=== PATIENT | male | born 1940 | race Caucasian/White ===

== ENCOUNTER 2019-10-18 07:47 | Observation (INO) ==
[~2019-10-18 07:47] MED LIST: BACITRACIN INJ 50,000 UNIT VIAL ONE; BUPIVACAINE 0.25% 30 ML VIAL ONE; LIDOCAINE HCL 1% 20 ML VIAL ONE
--- OUTSIDE RECORDS SUMMARY | 2019-10-18 07:53 | External Medical Summary | Continuity of Care Document ---
:1940 Author Name eTddy M.DJerome Address Unavailable Unavailable , Care Team Providers Name Role Phone Unavailable Unavailable Unavailable PCP, NO Unavailable Unavailable Problems Hypertension (401.9) (I10) Allergies and Adverse Reactions Intravenous Dye (Allergy) Medications Metoprolol Succinate ER 25 MG Oral Table t Extended Release 24 Hour; TAKE 1 TABLET BY MOUTH DAILY , M.D. Quantity: 90 Refills: 3 CoQ10 100 MG Oral Capsule; TAKE 1 CAPSULE Daily , M.D. Refills: 0 Saw [place] 1000 MG Oral Capsule; TAKE 1 CAPSULE Daily , M. D. Refills: 0 Glucosamine 500 MG TABS; Take 1 tablet daily , M.D. Refills: 0 Vitamin B-12 500 MCG Oral Tablet; TAKE 1 TABLET DAILY. , M.D . Refills: 0 Vitamin D3 25 MCG (1000 UT) Oral Tablet; TAKE 1 TABLET DAILY . , M.D. Refills: 0 Ecotrin Low Strength 81 MG Oral Tablet Delayed Release ; TAKE 1 TABLET DAILY. , M.D. Refills: 0 Fish Oil 1000 MG Oral Capsule; TAKE 1 CAPSULE DAILY. , M.D. Refills: 0 AndroGel 25 MG/2.5GM (1%) Transdermal Gel; APPLY DAILY DI RECTED , M.D. Refills: 0 Omeprazole 20 MG Oral Tablet Delayed Release; 1 capsule carole y , M.D. Quantity: 90 Refills: 3 Lisinopril 5 MG Oral Tablet; TAKE 1 TABLET DAILY. , M.D. Quantity: 90 Refills: 3 Procedures Procedures not documented Immunizations Immunizations not documented Family History Mother Family history of Brain tumor (239.6) (D49.6) Status: Active Family history of Status: Active Father Family history of myocardial infarction (V17.3) (Z82.49) Sta tus: Active Brother Family history of myocardial infarction (V17.3) (Z82.49) Sta tus: Active Plan of Treatment Planned Observations Planned Goals not documented Results No Known Results Results not documented
[2019-10-18] MEDS ORDERED: DiphenhydrAMINE HCL 50 MG/ML VIAL ONE (08:49)
[2019-10-18] MEDS ORDERED: methylPREDNISolone 125 MG/2 ML VIAL ONE (08:49)
[2019-10-18] MEDS ORDERED: raNITIdine HCl 25 MG/ML VIAL IV ONE ×2 (08:49→09:48)
[2019-10-18] MEDS ORDERED: MIDAZOLAM HCL 5 MG/ML 1 ML VIAL ONE (08:50)
[2019-10-18] MEDS ORDERED: CEFAZOLIN 250 MG/ML 1 GM VIAL ONE (08:50)
[2019-10-18] MEDS ORDERED: fentaNYL citrate 100 MCG/2 ML VIAL ONE (08:50)
[2019-10-18] MEDS ORDERED: WATER, STERILE FOR INJ 10 ML VIAL ONE (08:52)
--- NOTE | 2019-10-18 09:32 | History & Physical Bridge Note ---
Date of Service October 18, 2019 History & Physical Bridge Note I have examined the patient, reviewed the History & Physical and in the interval since the performance of the History & Physical I have noted the following changes of clinical significance: no changes noted
--- NOTE | 2019-10-18 09:33 | Pre Anesthesia Assessment ---
Date of Service October 18, 2019 Pre Sedation Assessment Vital Signs Temp Pulse Resp BP Pulse Ox 10/18/19 08:08 36.6 C 63 16 171/66 H 96 Cardiovascular + bradycardic Respiratory normal respiratory effort, lungs clear to auscultation Pre-Sedation Airway Assessment Smoking Status: Former smoker Hx Sleep Apnea: No Short, Thick Neck: No Thyromental Distance: > or= 3.5 Finger Breadths Oral Cavity: + Dentures Mallampati Class: III ASA: ASA3 NPO Status Date of Last Intake of Fluids: 10/17/19 Time of Last Intake of Fluids: 21:30 Date of Last Intake of Solid Food: 10/17/19 Time of Last Intake of Solid Foods: 21:30 Procedure Planning Contraindications for Sedation: none Current Medications Reviewed: Yes Notes The planned sedation has been discussed with the patient. Informed Consent was obtained. I have identified the patient, determined the appropriateness of sedation and have assessed the patient immediately prior to the procedure. All medicine(s) and interventions are by my order.
--- NOTE | 2019-10-18 11:30 | Post Anesthesia Assessment ---
Date of Service October 18, 2019 Post Sedation Assessment Vital Signs Temp Pulse Resp BP Pulse Ox 10/18/19 08:08 36.6 C 63 16 171/66 H 96 Recovery Score Activity: Moves 4 extremities Respiration: Deep Breath/Cough Circulation: +/-20% PreAnes Value Consciousness: Fully Awake Oxygen Saturation: > 92% On Room Air Discharge Sedation Level of Care: Fast Track Phase II Post Sedation Plan On clinical assessment, the patient appears to have tolerated the sedation without complications. Patient is recovering as anticipated. Patient will continue to be monitored by nursing and may be discharged when sedation discharge criteria are met per below protocol. Upon Completions of procedure up to 15 minutes continue every 5 minute vital signs and the P.A.R. score; then discharge to a Phase I or Fast Track to Phase II per the following guidelines: * Discharge Patient to appropriate Phase II area if PAR is 8 or greater or return to pre- procedure baseline. The post - procedure orders will be as directed. * If PAR score is less than 8 or not return to pre-procedure baseline then patient will follow Phase I monitoring till PAR is reached for Phase II. The Phase I may be done in procedure room or may call to secure a Phase I area. * If naloxone or flumazenil are used for reversal, hold in Phase I for continued monitoring from when last reversal dose was given for a minimum of 60 minutes or longer pending the nurse and/or physician discretion of patient condition before discharge to Phase II. Please call the Sedation Physician to re-evaluate and complete post-note for discharge to Phase II area. Do NOT discharge from procedure sedation or Phase 1 until post- sedation evaluation note is complete by procedure /sedation MD Sedation Discharge Instructions to be given to the patient at discharge to home.
[2019-10-18] MEDS ORDERED: OXYCODONE/ACETAMINOPHEN 5mg/325mg TAB PO PRN (11:31)
--- NOTE | 2019-10-18 11:31 | Operative Report ---
Post Operative Report Pre & Post Diagnosis ICM, ICD at [facility], SB Operation Date: 10/18/19 09:30 <No data on this case meets the specified criteria> I identified the patient and participated in the time-out.: Yes Procedure Operation Date: 10/18/19 09:30 Actual Procedures p Insertion ICD w/Existing Single - Mayte Lemon DO Surgeon Mayte Lemon, Industrial Education Teacher none Estimated Blood Loss 25 Findings Consistent with Post-Op Diagnosis Specimens none Description of Procedure see official report I attest to the content of the Intraoperative Record and any orders documented therein. Any exceptions are noted below.
[2019-10-18] MEDS ORDERED: SILDENAFIL 100 MG PO PRN (11:32)
--- NOTE | 2019-10-18 11:39 | Discharge Summary ---
Date of Service October 19, 2019 Admission HPI Per Admitting Provider pt admitted for elective upgrade to dual chamber ICD due to ICD at [facility], SB symptomatic and ICM Admission Exam Per Admitting Provider aaox3, NAD NC/AT, EOMI Supple No JVD bradycardic S1/S2, No murmur CTA b/l no w/r/r soft nt/nd no LE edema b/l skin intact no focal deficits Principal Diagnosis ICM s/p upgrade to dual chamber ICD Discharge Exam aaox3, NAD NC/AT, EOMI Supple No JVD Nrl S1/S2, No murmur CTA b/l no w/r/r soft nt/nd no LE edema b/l skin intact no focal deficits left pectoral incision intact, no hematoma mild ecchymosis ENMT Mallampati Class: III Respiratory normal respiratory effort, lungs clear to auscultation Cardiovascular Rate/Rhythm: + bradycardic Discharge Data Allergies Allergy/AdvReac Type Severity Reaction Status Date / Time IV CONTRAST Allergy Anaphylaxis Uncoded 10/18/19 08:36 Procedures Performed Operation Date: 10/18/19 09:30 Actual Procedures p Insertion ICD w/Existing Single - Mayte Lemon DO Ordered Studies CXR: No PTX, leads in position ECG: AP-VS ICD Interrogation 10/19/2019:Normal function and stable lead testing since implant 10/18/19 06:40 CL Cath Imgs for PACS use only Routine Hospital Course (1) Ischemic cardiomyopathy: (2) Sinus bradycardia: (3) ICD (implantable cardioverter-defibrillator) battery depletion: Total Time Total Time Spent Total Time Spent (In Minutes): 35 Total Time Includes: Examination of the Patient, Discharge Planning, Medication Reconciliation and Other Discharge Plan Discharge Items Patient Disposition: Home - Self-Care Reason For Visit: Sinus Bradychardia; Battery Depletion Discharge Diagnosis: ICM, ICD battery depletion and SB s/p upgrade to a dual chamber ICD Condition on Discharge: Good Activity: As commented below Activity Comment: do not lift the left elbow over the left shoulder for 1 month Lifting: No more than 10 pounds Lifting Comment: do not lift more than 10 pounds with the left arm for 2 weeks Bathing: Keep incision dry Bathing Comment: keep dressing on and dry for 1 week; then can remove and shower Sexual Activity: After two weeks 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-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 contact: 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 Boat Operator Call non-emergency contact if: you have any medication questions Follow-up/Referrals: PCP,KIARRA [Primary Care Provider] - Diet: Heart Healthy Addtl Attending Provider Instructions: device and wound check next week at [facility] as scheduled keep dressing on and dry until Thursday 10/25 then can remove and shower letting water run over the incision-do not scrub it If you notice any concerns at any time around the device site call my office Pending Studies at Discharge: No Stand-Alone Forms: My [facility] Medications and DC Order Prescriptions: Continued glucosamine sulfate [Glucosamine] 500 mg Tablet 500 mg PO DAILY RF: 0 aspirin [Ecotrin Low Strength] 81 mg Tablet,Delayed Release (Dr/Ec) 81 mg PO DAILY RF: 0 sildenafil 100 mg Tablet 100 mg PO DAILY PRN (Reason: ERECTILE DYSFUNCTION) RF: 0 mupirocin 2 % Ointment 1 applic TOPICAL BID RF: 0 metoprolol succinate 25 mg Tablet Extended Release 24 Hr 25 mg PO DAILY RF: 0 testosterone [AndroGel] 1 % (25 mg/2.5gram) Gel In Packet 1 packet TRANSDERMAL DAILY RF: 0 coenzyme Q10 [Co Q-10] 100 mg Capsule 100 mg PO DAILY RF: 0 rosuvastatin [Crestor] 20 mg Tablet 20 mg PO DAILY RF: 0 Prilosec OTC 20 mg Tablet,Delayed Release (Dr/Ec) 20 mg PO DAILY RF: 0 cyanocobalamin (vitamin B-12) [Vitamin B-12] 500 mcg Lozenge 500 mcg PO DAILY RF: 0 cholecalciferol (vitamin D3) [Vitamin D3] 1,000 unit Tablet,Chewable 1,000 unit PO DAILY RF: 0 sacubitril-valsartan 24-26 mg Tablet 1 tab PO BID RF: 0 Prevagen 10 MG 10 mg PO DAILY RF: 0 Discharge Orders: Discharge Order (Routine); Ordered 10/19/19 Ordered By: Mayte Lemon Admission Data Admit Date/Time: 10/18/19 10:45 Attending Provider: Mayte Lemon Admit Provider: Mayte Lemon Primary Care Provider: PCPKIARRA
--- NOTE | 2019-10-18 12:03 | Operative Report ---
DATE OF OPERATION: 10/18/2019 PREOPERATIVE DIAGNOSES: ICD battery depletion, ischemic cardiomyopathy and sinus bradycardia. POSTOPERATIVE DIAGNOSES: ICD battery depletion, ischemic cardiomyopathy and sinus bradycardia. PROCEDURE: Upgrade from a single chamber rate responsive implantable cardiac defibrillator to a dual chamber rate responsive implantable cardiac defibrillator under fluoroscopic guidance. SURGEON: Mayte Lemon DO ASSISTANTS: None. ANESTHESIA: Monitored conscious sedation administered under my supervision by Evelia Lawrence. Start time 09:53, end time 11:25. Total of 2 mg of Versed, 100 mcg of fentanyl. INTRAVENOUS FLUIDS: 130 mL. ANTIBIOTICS: 1 gram of Ancef. BLOOD LOSS: 25 mL. Additional medications due to a contrast allergy and the possibility of given IV dye, 125 mg of Solu-Medrol, 50 mg of Zantac and 25 mg of Benadryl. COMPLICATIONS: None. CONDITION: Stable. URINE OUTPUT: Not applicable. SPECIMENS: None. FINDINGS: See below. DRAINS: None. INDICATIONS: This is an 78-year-old gentleman with past medical history for ischemic cardiomyopathy with ejection fraction 20% by echo in 2019. He had an ICD initially implanted in 2000 with a generator change in 2009. He also has a history of paroxysmal ventricular tachycardia, history of CAD with a CABG x5 23 years ago, hypertension, hyperlipidemia, carotid artery stenosis, chronic systolic heart failure, [place] Heart Association class 2, allergy to IV CONTRAST DYE and sinus bradycardia. At his most recent defibrillator check, he was found to hit NISREEN and was recommended a defibrillator generator change in addition to his symptomatic sinus bradycardia upgrade to a dual chamber with insertion of a right atrial pacing lead. CONSENT: Consent was obtained prior to the patient going into electrophysiology lab. The patient was informed of the risks, benefits and alternative procedure. Risks include but not limited to sudden cardiac , cardiac arrhythmias, cerebrovascular accident, myocardial infarction, injury to the blood vessels, chamber of the heart, lung, bleeding, and infection. The patient understood these risks and agreed with procedure as planned. Informed consent was obtained. A 20 mL 1% lidocaine, bupivacaine mixture were given over the prior surgical incision. Incision was made over the prior surgical incision. Blunt dissection was performed down to the prior pulse generator and this was freed from the capsule and removed from the body, but remained connected to the lead. Then, I tried to look to see if there was a cephalic vein by doing blunt dissection; however, none was found, so I ended up getting axillary access through a needlestick, I did not have to use IV contrast dye. A guidewire was inserted only to about mid clavicular area and then I felt that resistance, so I put a 5-Eritrean dilator over this guidewire. We removed the guidewire and put a Glidewire through and then got the Glidewire down into the right ventricle. Then, I initially put in a short 8-Eritrean sheath; however, I had problems with advancing the lead at that mid clavicular area, so I ended up using a long 7-Eritrean sheath. Then, the right atrial lead was advanced into the right atrium and positioned interatrial appendage under fluoroscopic guidance. There was adequate pacing and sensing thresholds and no diaphragmatic stimulation with high output pacing. The 7-Eritrean sheath was peeled away and lead was fixated to pectoralis muscle using 0 silk suture. The defibrillator capsule was disrupted inferiorly and caudally to allow for new blood flow. It was flushed with copious amounts of bacitracin saline wash. Of note before I did that I did test the old right ventricular lead intraoperatively, see below for results. Then, the new defibrillator was attached to the leads, making sure that the pins were in appropriate position, passed set screw and set screws were all tightened. The new defibrillator was then placed in a Tyrx pouch, then placed in the pocket making sure that the leads were lying flat beneath the device. The incision was closed in 3-layer fashion with 2-0 Vicryl interrupted suture followed by 3-0 Vicryl interrupted suture followed by a 4-0 Monocryl running stitch and Dermabond was applied followed by a Holland and micropore dressing. EQUIPMENT: 1. Explanted generator is a Kwasi II VR [id number], serial number [id number], implanted 06/06/2010, voltage 2.61 volts CHOIRMASTER on 10/05/2019. 2. The new pulse generator is a [employer] Evera MRI XT DR Burnett [id number], serial number [id number]. 3. The Tyrx pouch is reference [id number], lot number [id number], expiration 12/02/2019. 4. Right atrial lead 5076-52 cm, serial number [id number], implanted today. 5. Right ventricular lead 6944-65 cm, serial number [id number], implanted 12/04/2000. INTRAOPERATIVE TESTIN. Right atrial lead: P waves 1.3 millivolts, impedance 717 ohms, threshold 1.1 volts at 0.5 milliseconds. 2. Right ventricular lead: R-waves 8.1 millivolts, impedance 981 ohms, threshold 1.6 volts at 0.5 milliseconds. FINAL MEASUREMENTS THROUGH THE DEVICE: 1. Right atrial lead: P-wave 0.9 millivolts, impedance 532 ohms, threshold 1.25 volts at 0.4 milliseconds. 2. Right ventricular lead: R-waves 8.1 millivolts, impedance 779 ohms, threshold 2 volts at 0.4 milliseconds. FINAL PARAMETERS: MVP-R 60/130, right atrial amplitude 3.5 volts, pulse width 0.4 milliseconds, sensitivity 0.3 millivolts. Right ventricular amplitude 4 volts, pulse width 0.4 milliseconds, sensitivity 0.3 millivolts. VT monitor zone at 140 beats per minute for 20 detection intervals, VT zone 167 beats per minute for 12 detection intervals and a VF zone at 200 beats per minute for 12 out of 16 detection intervals. IMPRESSION: Successful upgrade to a dual chamber rate responsive implantable cardiac defibrillator secondary to ischemic cardiomyopathy, sinus bradycardia and the defibrillator battery depletion. PLAN: Monitor patient overnight, 12-lead ECG, chest x-ray. He is not allowed to lift left elbow or left shoulder for 1 month. He cannot lift more than 10 pounds with the left arm for 2 weeks. He is to keep the dressing on and the incision dry for the next week, then he can remove it and shower in let water run over the incision. He can continue his home medications and he had a followup device in wound clinic in our office in 1 week next week. I attest to the content of the Intraoperative Record and any orders documented therein. Any exception s are noted below.
[2019-10-18] MEDS: ACETAMINOPHEN 325 MG TAB PO PRN ×2 (13:16→17:29)
[2019-10-18] MEDS: SACUBITRIL-VALSARTAN 24-26 MG TAB PO SCH (20:58)
[2019-10-18] MEDS: MUPIROCIN 2% OINT 22 GM TUBE TOP SCH (20:59)
--- NOTE | 2019-10-19 07:47 | XRay Report ---
XR chest 2V PA/lateral HISTORY: post implant COMPARISON: None. FINDINGS: No pneumothorax. No pleural effusions. The heart is top normal in size. There are poststern otomy changes. Left-sided pacemaker/defibrillator is noted. The leads appear intact. Mild interstitia l thickening which may be chronic. No evidence for pulmonary edema. No focal lung consolidations to s uggest pneumonia. IMPRESSION: Left-sided pacemaker/defibrillator placement. The leads appear intact. No pneumothorax. ACT 112: Negative or not required by law. Electronically signed by: Cornelius Reed M.D. 10/19/2019 7:46 AM
[2019-10-19 08:15] VITALS: BP 107/56; TEMP 97.5; O2SAT 95
[2019-10-19 08:17] VITALS: PULSE 88
[2019-10-19] MEDS ORDERED: METOPROLOL SUCC 25MG EXT REL TAB PO SCH (09:00)
[2019-10-19] MEDS ORDERED: NON-FORMULARY MEDICATION (Prevagen 10 MG) PO SCH (09:00)
[2019-10-19] MEDS ORDERED: NON-FORMULARY MEDICATION (Coenzyme Q10 [Co Q-10] 100 MG) PO SCH (09:00)
[2019-10-19] MEDS ORDERED: PANTOprazole 40 MG TAB PO SCH (09:00)
[2019-10-19] MEDS ORDERED: NON-FORMULARY MEDICATION (Glucosamine Sulfate [Glucosamine] 500 MG) PO SCH (09:00)
[2019-10-19] MEDS ORDERED: ASPIRIN 81 MG ECTAB PO SCH (09:00)
[2019-10-19] MEDS ORDERED: ROSUVASTATIN CALCIUM 20 MG TAB PO SCH (09:00)
[2019-10-19] MEDS ORDERED: CHOLECALCIFEROL 1,000 UNITS TAB PO SCH (09:00)
[2019-10-19] MEDS ORDERED: CYANOCOBALAMIN 500 MCG TABLET (VITAMIN B-12) PO SCH (09:00)
[2019-10-19] MEDS: SACUBITRIL-VALSARTAN 24-26 MG TAB PO SCH (09:11)
[2019-10-19] MEDS: MUPIROCIN 2% OINT 22 GM TUBE TOP SCH (09:12)
== END 2019-10-19 10:20 | disposition home or self-care (01) ==
LOC: 2E 07:47 → EP 07:47

== ENCOUNTER 2021-01-24 00:09 | Inpatient (IN) ==
[2021-01-24 00:32] LABS: Basophils # (auto) 0.01 K/uL (0-0.2); Basophils % (auto) 0.2 %; Eosinophils # (auto) 0.15 K/uL (0-0.5); Eosinophils % (auto) 2.6 %; Hematocrit (blood only) 41.3 % (42-52); Immature Granulocytes # (auto) 0.01 K/uL (0.00-0.02); Immature Granulocytes % (auto) 0.2 %; Lymphocytes # (auto) 1.33 K/uL (1.2-3.4); Lymphocytes % (auto) 23.4 %; Mean Corpuscular Hemoglobin 29.9 pg (25-34); Mean Corpuscular Hgb Conc 33.9 g/dL (32-36); Mean Corpuscular Volume 88.2 fL (80-100); Mean Platelet Volume 10.4 fL (7.4-10.4); Monocytes # (auto) 0.66 K/uL (0.11-0.59); Monocytes % (auto) 11.6 %; Neutrophils # (auto) 3.52 K/uL (1.4-6.5); Platelet Count 124 K/uL (130-400); RDW Coefficient of Variation 14.9 % (11.5-14.5); RDW Standard Deviation 48.2 fL (36.4-46.3); Red Blood Count 4.68 M/uL (4.7-6.1); White Blood Count 5.68 K/uL (4.8-10.8)
--- NOTE | 2021-01-24 00:32 | Emergency Department Note ---
History of Present Illness General Chief complaint: Cardiac Assessment Stated complaint: Cardiac defib went off,REF BY DOC Time Seen by Provider: 01/24/21 00:15 Source: patient Mode of arrival: ambulatory Limitations: no limitations History of Present Illness Provider complaint: defibrillator fired Onset (ago): hour(s) 1 Location: chest Radiation: non-radiation Associated symptoms: + denies other symptoms Treatments prior to arrival: none This is an 80-year-old male presents the emergency department with his due to concern for his defibrillator firing. Patient and state they were in bed and asleep when the patient suddenly woke up, screamed, and complained that his chest hurt because the defibrillator had fired. The states this is his second defibrillator. They did have an issue recently where a wire head become dislodged according to her that caused an alarm to go off. She states that had since been remedied. She state patient had no complaints throughout the day. They deny any change in his medications. No recent illness. Patient denies any current symptoms at this time. States he feels well otherwise. Patient most concerned that the defibrillator would fire again. Pt seen during a time of high acuity and national emergency pandemic while wearing PPE. Home Medications Medication Instructions Recorded Confirmed Type aspirin [Ecotrin Low Strength] 81 mg PO DAILY 10/18/19 01/24/21 History cholecalciferol (vitamin D3) 1,000 unit PO DAILY 10/18/19 01/24/21 History [Vitamin D3] coenzyme Q10 [Co Q-10] 100 mg PO DAILY 10/18/19 01/24/21 History cyanocobalamin (vitamin B-12) 500 mcg PO DAILY 10/18/19 01/24/21 History [Vitamin B-12] glucosamine sulfate [Glucosamine] 500 mg PO DAILY 10/18/19 01/24/21 History metoprolol succinate 25 mg PO DAILY 10/18/19 01/24/21 History omeprazole magnesium [Prilosec OTC] 20 mg PO DAILY 10/18/19 01/24/21 History rosuvastatin [Crestor] 5 mg PO Q OTHER DAY 10/18/19 01/24/21 History testosterone [AndroGel] 1 packet TRANSDERMAL DAILY 10/18/19 01/24/21 History Prevagen Es 1 dose PO DAILY 01/24/21 01/24/21 History lisinopril 10 mg PO DAILY 01/24/21 01/24/21 History Allergies Allergy/AdvReac Type Severity Reaction Status Date / Time Iodinated Contrast Media Allergy Anaphylaxis Verified 01/24/21 02:17 Past Med/Surg History Social History Smoking Status: Former smoker Tobacco Type: Cigarettes Hx Alcohol Use: No Hx Substance Use: No Preferred Language: Mohawk Communication Ability: Effective Beliefs That Will Affect Care: None Current Living Situation: Spouse Other Information That Helps Us Care for You: No Feels Safe at Home: Yes Safety Concerns: Feels Safe At This Time Assistive Devices: Denture - Upper and Denture - Lower Review of Systems See HPI for pertinent positives & negatives. and A total of 10 systems reviewed and were otherwise negative Physical Exam Vital Signs Vital Signs - 24 hr 01/24/21 00:13 01/24/21 01:04 01/24/21 01:56 Temperature 36.3 C L Temperature Source Oral Pulse Rate 74 Pulse Rate [Right] 81 61 Pulse Rhythm [Right] Regular Regular Pulse Strength [Right] Normal Respiratory Rate 16 16 16 Respiratory Effort / Characteristics Non-Labored Spontaneous Non-Labored Spontaneous Respiratory Depth Normal Normal Blood Pressure 136/63 Blood Pressure [Right Arm] 146/71 H 128/86 Blood Pressure Mean 87 Blood Pressure Mean [Right Arm] 96 100 Pulse Oximetry 97 98 99 Oxygen Delivery Method Room Air Room Air Room Air Sepsis Recent Fever Within 48 Hours No Sepsis New/Unexplained Change in Mental Status No Sepsis Action Taken by Nursing No Action Required 01/24/21 02:52 Temperature Temperature Source Pulse Rate Pulse Rate [Right] 60 Pulse Rhythm [Right] Regular Pulse Strength [Right] Normal Respiratory Rate 16 Respiratory Effort / Characteristics Non-Labored Spontaneous Respiratory Depth Normal Blood Pressure Blood Pressure [Right Arm] 147/60 H Blood Pressure Mean Blood Pressure Mean [Right Arm] 89 Pulse Oximetry 99 Oxygen Delivery Method Room Air Sepsis Recent Fever Within 48 Hours Sepsis New/Unexplained Change in Mental Status Sepsis Action Taken by Nursing GENERAL: alert, well appearing, well nourished, no distress, non-toxic EYE EXAM: normal conjunctiva, PERRL and EOM's grossly intact OROPHARYNX: no exudate, no erythema, lips, buccal mucosa, and tongue normal and mucous membranes are moist NECK: supple, no nuchal rigidity, no adenopathy, non-tender LUNGS: Clear to auscultation. Normal chest wall mechanics, no w/r/r HEART: no murmurs, S1 normal and S2 normal, well-healed midline sternotomy scar noted to chest, AICD evident in the left anterior superior chest wall ABDOMEN: abdomen soft, non-tender, normo-active bowel sounds, no masses, no rebound or guarding. BACK: Back is symmetrical on inspection and there is no deformity, no midline tenderness, no CVA tenderness. SKIN: no rashes and no bruising UPPER EXTREMITIES: upper extremities are grossly normal. FROM, nml pulses b/l. LOWER EXTREMITIES: No pitting edema. FROM, nml pulses b/l. NEURO EXAM: Normal sensorium, cranial nerves II-XII grossly intact, normal speech, no gross weakness of arms, no gross weakness of legs. Gross sensation intact. Course Course 0035: states pt has recently had a cough she feels he was more sob. 0140: Discussed with Dr. Granados. He would like metoprolol tartrate 25 mg po given to the patient. 0235: Discussed with Dr. Malone. Administered Medications Aspirin (Aspirin 81 Mg Ectab) 81 mg PO DAILY [facility] Stop: 02/23/21 08:59 Last Admin: 01/24/21 08:42 Dose: 81 mg Documented by: [id number] Cyanocobalamin (Cyanocobalamin 500 Mcg Tablet (Vitamin B-12)) 500 mcg PO DAILY [facility] Stop: 02/23/21 08:59 Last Admin: 01/24/21 08:41 Dose: 500 mcg Documented by: [id number] Doxycycline Hyclate (Doxycycline Hyclate 100 Mg Cap) 100 mg PO BID [facility] Stop: 01/31/21 20:59 Last Admin: 01/24/21 20:10 Dose: 100 mg Documented by: [id number] Enoxaparin Sodium (Enoxaparin Inj 30 Mg/0.3 Ml Syr) 30 mg SQ QAM [facility] Stop: 02/23/21 08:59 Last Admin: 01/24/21 08:42 Dose: 30 mg Documented by: [id number] Ceftriaxone Sodium 2,000 mg/ (Dextrose) 70 mls @ 100 mls/hr IV Q24H [facility]; Protocol Stop: 01/31/21 21:59 Last Infusion: 01/24/21 23:05 Dose: 0 mls/hr Documented by: [id number] Admin: 01/24/21 22:20 Dose: 100 mls/hr Documented by: [id number] Lisinopril (Lisinopril 10 Mg Tab) 10 mg PO DAILY [facility] Stop: 02/23/21 08:59 Last Admin: 01/24/21 08:42 Dose: 10 mg Documented by: [id number] Metoprolol Succinate (Metoprolol Succ 25mg Ext Rel Tab) 25 mg PO BID [facility] Stop: 02/23/21 20:59 Last Admin: 01/24/21 20:10 Dose: 25 mg Documented by: [id number] Pantoprazole Sodium (Pantoprazole 40 Mg Tab) 40 mg PO DAILY [facility] Stop: 02/23/21 08:59 Last Admin: 01/24/21 08:41 Dose: 40 mg Documented by: [id number] Rosuvastatin Calcium (Rosuvastatin Calcium 5 Mg Tab) 5 mg PO Q48H [facility] Stop: 02/23/21 08:59 Last Admin: 01/24/21 08:42 Dose: 5 mg Documented by: [id number] Discontinued Medications Doxycycline Hyclate (Doxycycline Hyclate 100 Mg Cap) 100 mg PO NOW STA Stop: 01/24/21 01:48 Last Admin: 01/24/21 02:11 Dose: 100 mg Documented by: [id number] Ceftriaxone Sodium (Rocephin) 1,000 mg in 50 mls @ 100 mls/hr IV NOW STA Stop: 01/24/21 02:16 Last Infusion: 01/24/21 02:47 Dose: 0 mls/hr Documented by: [id number] Admin: 01/24/21 02:12 Dose: 100 mls/hr Documented by: [id number] Metoprolol Succinate (Metoprolol Succ 25mg Ext Rel Tab) 25 mg PO DAILY [facility] Stop: 02/23/21 08:59 Last Admin: 01/24/21 08:42 Dose: 25 mg Documented by: [id number] Metoprolol Succinate (Metoprolol Succ 25mg Ext Rel Tab) 12.5 mg PO NOW STA Stop: 01/24/21 12:30 Last Admin: 01/24/21 13:22 Dose: 12.5 mg Documented by: [id number] Metoprolol Tartrate (Metoprolol Tartrate 25 Mg Tab) 25 mg PO NOW STA Stop: 01/24/21 01:48 Last Admin: 01/24/21 02:12 Dose: 25 mg Documented by: [id number] Critical Care Time Critical Care Time: Yes Total Critical Care Time: 35 Critical care of 35 min performed to assess and manage high likelihood of life- threatening dysrhythmia, involving labs and imaging performed with assessment to evaluate dysrhythmia diagnosis with frequent reassessment. This time includes bedside time, treatment discussions with patient/family/consultants, documentation time and excludes procedure time. Medical Decision Making Differential Diagnosis Differential diagnoses includes but is not limited to acute coronary syndrome, myocardial infarction, pericarditis, pulmonary embolus, aortic dissection, pneumonia, pneumothorax, musculoskeletal, shingles, esophageal. Medical Records Attestation: I reviewed the patient's medical records. Home Medications Current Medication List: was personally reviewed by me Laboratory Data Attestation: I reviewed the patient's lab results. Result diagrams: 01/24/21 00:20 01/24/21 00:20 Lab Results 01/24/21 01/24/21 01/24/21 Range/Units 00:20 00:20 00:20 WBC 5.68 (4.8-10.8) K/uL RBC 4.68 L (4.7-6.1) M/uL Hgb 14.0 (14.0-18.0) g/dL Hct 41.3 L (42-52) % MCV 88.2 (80-100) fL MCH 29.9 (25-34) pg MCHC 33.9 (32-36) g/dL RDW Std Deviation 48.2 H (36.4-46.3) fL RDW Coeff of Katalina 14.9 H (11.5-14.5) % Plt Count 124 L (130-400) K/uL MPV 10.4 (7.4-10.4) fL Immature Gran % (Auto) 0.2 % Neut % (Auto) 62.0 % Lymph % (Auto) 23.4 % [place] % (Auto) 11.6 % Eos % (Auto) 2.6 % Baso % (Auto) 0.2 % Neut # (Auto) 3.52 (1.4-6.5) K/uL Lymph # (Auto) 1.33 (1.2-3.4) K/uL [place] # (Auto) 0.66 H (0.11-0.59) K/uL Eos # (Auto) 0.15 (0-0.5) K/uL Baso # (Auto) 0.01 (0-0.2) K/uL Immature Gran # (Auto) 0.01 (0.00-0.02) K/uL PT 10.2 (9.0-12.0) Seconds INR 1.0 (0.9-1.1) APTT (21.0-31.0) Seconds PTT Ratio Sodium 139 (136-145) mmol/L Potassium 4.1 (3.5-5.1) mmol/L Chloride 108 H (98-107) mmol/L Carbon Dioxide 28 (21-32) mmol/L Anion Gap 3.0 (3-11) BUN 28 H (7-18) mg/dl Creatinine 1.20 (0.6-1.4) mg/dl Est Cr Clr Drug Dosing 44.4 ml/min Est GFR ( Amer) 64.9 Est GFR (Non-Af Amer) 56.0 BUN/Creatinine Ratio 23.1 H (10-20) Glucose 93 (70-99) mg/dl Calcium 8.8 (8.5-10.1) mg/dl Magnesium 2.1 (1.8-2.4) mg/dl Total Bilirubin 0.4 (0.2-1) mg/dl AST 12 L (15-37) U/L ALT 18 (12-78) U/L Alkaline Phosphatase 84 (45-117) U/L Troponin I 0.094 H* (0-0.045) ng/ml NT-Pro-B Natriuret Pep 2457 H (0-1800) pg/ml Total Protein 7.5 (6.4-8.2) gm/dl Albumin 3.5 (3.4-5.0) gm/dl Globulin 4.0 (2.5-4.0) gm/dl Albumin/Globulin Ratio 0.9 (0.9-2) TSH 5.020 H (0.300-4.500) uIu/ml Free T4 0.89 (0.8-1.6) ng/dl COVID-19 Eval Order SARS-CoV-2 (PCR) (Negative) Influenza Type A (PCR) (Neg) Influenza Type B (PCR) (Neg) RSV (RT-PCR) (Neg) 01/24/21 01/24/21 01/24/21 Range/Units 00:20 01:00 01:00 WBC (4.8-10.8) K/uL RBC (4.7-6.1) M/uL Hgb (14.0-18.0) g/dL Hct (42-52) % MCV (80-100) fL MCH (25-34) pg MCHC (32-36) g/dL RDW Std Deviation (36.4-46.3) fL RDW Coeff of Katalina (11.5-14.5) % Plt Count (130-400) K/uL MPV (7.4-10.4) fL Immature Gran % (Auto) % Neut % (Auto) % Lymph % (Auto) % [place] % (Auto) % Eos % (Auto) % Baso % (Auto) % Neut # (Auto) (1.4-6.5) K/uL Lymph # (Auto) (1.2-3.4) K/uL [place] # (Auto) (0.11-0.59) K/uL Eos # (Auto) (0-0.5) K/uL Baso # (Auto) (0-0.2) K/uL Immature Gran # (Auto) (0.00-0.02) K/uL PT (9.0-12.0) Seconds INR (0.9-1.1) APTT 29.0 (21.0-31.0) Seconds PTT Ratio 1.1 Sodium (136-145) mmol/L Potassium (3.5-5.1) mmol/L Chloride (98-107) mmol/L Carbon Dioxide (21-32) mmol/L Anion Gap (3-11) BUN (7-18) mg/dl Creatinine (0.6-1.4) mg/dl Est Cr Clr Drug Dosing ml/min Est GFR ( Amer) Est GFR (Non-Af Amer) BUN/Creatinine Ratio (10-20) Glucose (70-99) mg/dl Calcium (8.5-10.1) mg/dl Magnesium (1.8-2.4) mg/dl Total Bilirubin (0.2-1) mg/dl AST (15-37) U/L ALT (12-78) U/L Alkaline Phosphatase (45-117) U/L Troponin I (0-0.045) ng/ml NT-Pro-B Natriuret Pep (0-1800) pg/ml Total Protein (6.4-8.2) gm/dl Albumin (3.4-5.0) gm/dl Globulin (2.5-4.0) gm/dl Albumin/Globulin Ratio (0.9-2) TSH (0.300-4.500) uIu/ml Free T4 (0.8-1.6) ng/dl COVID-[address] Eval [address] CovFluRsv at [facility] SARS-CoV-2 (PCR) NEGATIVE (Negative) Influenza Type A (PCR) Negative (Neg) Influenza Type B (PCR) Negative (Neg) RSV (RT-PCR) Negative (Neg) Imaging Data My Impression: X-ray: I interpreted the following studies. Chest: A single view study of the chest was reviewed and was negative for cardiomegaly, effusion, pulmonary edema, or wide mediastinum. Right lower lobe infiltrate noted. AICD noted. ECG Data Attestation: I personally reviewed and interpreted this ECG as follows: Indication: + chest pain Rate (beats per minute): 85 Rhythm: + other (paced) ECG Intervals/blocks: + IVCD and + Normal QT ECG Oden: + Normal ECG ST segments: + Nonspecific ST abnormalities MDM Narrative This is a 80-year-old male presents the emergency department due to concern for defibrillator firing at home that woke him up from sleep causing chest pain. Symptoms have resolved at the time of arrival, however given concern for the defibrillator, they presented to the emergency department after discussion with the on-call trouble clerk. Patient well-appearing here, device interrogated at bedside. Labs drawn and sent and were reassuring. Chest x-ray reassuring. The assistance of case management I was able to review some recent cardiology records from [facility] regarding the patient's device. Patient with longstanding CAD, ejection fraction of 15%, and at the time the device was changed by Dr. Lemon a few years ago, he was given a BiV pacer/defibrillator. The device had been interrogated in recent months. In discussion with the [facility], patient was appropriately defibrillated after overdrive pacing failed for an episode of ventricular tachycardia of which patient does have a history. They also had concern for additional mechanical malfunction or failure of the RV lead. I discussed the case with on-call cardiology, Dr. Granados. During our evaluation in the emergency room, patient was also found to have a likely underlying pneumonia, and on additional questioning of the patient as well as at bedside, he had likely been symptomatic in recent days. Patient was started on antibiotics as a precaution. No evidence for bacteremia/sepsis. Patient's other electrolytes reassuring, and it is unclear if this could have continued to a recurrent episode of VT which ultimately led to the defibrillator firing. Case discussed with hospitalist for additional evaluation and man agement. An order was placed for continuous cardiac monitoring. The monitor shows a rate of 70_ with paced_ rhythm. Impression & Plan Biventricular ICD (implantable cardioverter-defibrillator) in place, Chest pain, Defibrillator discharge, Pneumonia, Elevated troponin, Thrombocytopenia Discharge Plan Visit Data Chief Complaint: Cardiac Assessment Stated Complaint: Cardiac defib went off,REF BY DOC ED Provider: Deana Leonardo Discharge Problem: Biventricular ICD (implantable cardioverter-defibrillator) in place, Chest pain, Defibrillator discharge, Pneumonia, Elevated troponin, Thrombocytopenia Patient Disposition: Admitted As Inpatient Discharge Instructions Interventions: ED Discharge Assessment Last Done: 01/24/21 03:47 Discharge Problem: Chest pain Qualifiers: Chest pain type: unspecified Qualified Code(s): R07.9 - Chest pain, unspecified Pneumonia Qualifiers: Pneumonia type: due to unspecified organism Laterality: right Lung location: lower lobe of lung Qualified Code(s): J18.9 - Pneumonia, unspecified organism
[2021-01-24 00:42] LABS: Prothrombin Time 10.2 Seconds (9.0-12.0)
[2021-01-24 00:51] LABS: Albumin Level 3.5 gm/dl (3.4-5.0); BUN Creatinine Ratio 23.1 (10-20); Calcium 8.8 mg/dl (8.5-10.1); Creatinine Clr Calc Pharmacy 44.4 ml/min; Est GFR (African American) 64.9; Magnesium 2.1 mg/dl (1.8-2.4); Potassium 4.1 mmol/L (3.5-5.1)
[2021-01-24 01:12] LABS: Albumin Globulin Ratio 0.9 (0.9-2); Bilirubin,Total 0.4 mg/dl (0.2-1); Thyroid Stimulating Hormone 5.02 uIu/ml (0.300-4.500); Total Protein 7.5 gm/dl (6.4-8.2); Troponin I 0.094 ng/ml (0-0.045)
[2021-01-24 01:29] LABS: T4 Free Thyroxine 0.89 ng/dl (0.8-1.6)
[2021-01-24 01:45] LABS: Influenza A virus by PCR Negative (Neg); Influenza B virus by PCR Negative (Neg); RSV by PCR Negative (Neg); SARS CoV2 RNA(COVID-19) InHosp NEGATIVE (Negative)
[2021-01-24] MEDS ORDERED: cefTRIAXone SODIUM 1,000 MG/50 ML BAG IV STA (01:47)
[2021-01-24] MEDS ORDERED: DOXYCYCLINE HYCLATE 100 MG CAP PO STA (01:47)
[2021-01-24] MEDS ORDERED: METOPROLOL TARTRATE 25 MG TAB PO STA (01:47)
[2021-01-24 02:44] LABS: Partial Thromboplastin Ratio 1.1
--- NOTE | 2021-01-24 03:19 | History & Physical Report ---
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 until patient seen by cardiology in anticipation of procedure Ceftriaxone, Doxycycline for pneumonia Follow troponin DVT prophylaxis per Lovenox subcu Full code Patient requesting updates from providers. Ms. Kelley Kim, contact #[phone]. Text document was generated using [employer] voice recognition software. It may contain grammatical or spelling errors. Kindly contact undersigned for clarification of any documentation item in question. History of Present Illness Chief Complaint: Device shock Primary Care Provider: Dr. Hector History obtained from patient, family, and records. Patient is a fair historian. Medical history significant for chronic systolic heart failure secondary to ischemic cardiomyopathy (EF 20-24%, TTE 2019), CAD status post CABG, PVD as per records, paroxysmal VT status post ICD, hypertension, hyperlipidemia, COPD as per records, mood disorder, past tobacco abuse. Last confinement October [address] [facility] [place] for ICD battery depletion. Patient single-chamber ICD upgraded to dual-chamber rate responsive ICD under fluoroscopic guidance. Patient device reprogrammed secondary to lead sensing issues October 2020. Patient ICD showing alert tones about 2 months ago. No chest pain, S OB, no device activation. Patient met [employer] sales representatives at [facility]. Alert setting change as per documentation. Patient noted worsening junky cough symptoms for the patient last week. Patient may not be as aware of cough because of forgetfulness as per . Patient denies chest pain, S OB, fever, chills. Patient denies aspiration. Denies recent COVID-19 contacts. Patient roused from sleep this a.m. from defibrillator shock. Transient achy left-sided chest pain without other symptoms. Patient denies S OB or fluid retention. Compliant with home medications. At the ER, Ceftriaxone and Doxycycline given for pneumonia. 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 Allergies Allergy/AdvReac Type Severity Reaction Status Date / Time Iodinated Contrast Media Allergy Anaphylaxis Verified 01/24/21 02:17 Home Medications Medication Instructions Recorded Confirmed Type aspirin [Ecotrin Low Strength] 81 mg PO DAILY 10/18/19 01/24/21 History cholecalciferol (vitamin D3) 1,000 unit PO DAILY 10/18/19 01/24/21 History [Vitamin D3] coenzyme Q10 [Co Q-10] 100 mg PO DAILY 10/18/19 01/24/21 History cyanocobalamin (vitamin B-12) 500 mcg PO DAILY 10/18/19 01/24/21 History [Vitamin B-12] glucosamine sulfate [Glucosamine] 500 mg PO DAILY 10/18/19 01/24/21 History metoprolol succinate 25 mg PO DAILY 10/18/19 01/24/21 History omeprazole magnesium [Prilosec OTC] 20 mg PO DAILY 10/18/19 01/24/21 History rosuvastatin [Crestor] 5 mg PO Q OTHER DAY 10/18/19 01/24/21 History testosterone [AndroGel] 1 packet TRANSDERMAL DAILY 10/18/19 01/24/21 History Prevagen Es 1 dose PO DAILY 01/24/21 01/24/21 History lisinopril 10 mg PO DAILY 01/24/21 01/24/21 History Past Med/Surg History Social History Smoking Status: Former smoker Tobacco Type: Cigarettes Hx Alcohol Use: No Hx Substance Use: No Preferred Language: Malawian Communication Ability: Effective Beliefs That Will Affect Care: None Current Living Situation: Spouse Other Information That Helps Us Care for You: No Feels Safe at Home: Yes Safety Concerns: Feels Safe At This Time Assistive Devices: Denture - Upper and Denture - Lower Review of Systems Review of Systems: As per HPI, all 10 systems reviewed, all other ROS negative Physical Exam Physical Exam: GENERAL: Comfortable, pleasant, oriented to year, no respiratory distress SKIN: Normal color, warm HEENT: Alopecia, pink palpebral conjunctivae, no ptosis, dry buccal mucosa NECK : Supple, no tenderness CHEST : Decreased breath sounds, no tenderness HEART : diminished S1-S2, no obvious murmurs ABDOMEN: Some distention, nontender EXTREMITIES : No LE swelling/tenderness, no other conspicuous deformities noted NEUROLOGIC : Coherent, oriented to year, no facial asymmetry, no other gross focality Results & Data Results & Data ([facility]) Vital Signs (Past 12 Hours) Vital Signs Temp Pulse Pulse Resp BP BP Pulse Ox 01/24/21 02:52 60 16 147/60 H 99 01/24/21 01:56 61 16 128/86 99 01/24/21 01:04 81 16 146/71 H 98 01/24/21 00:13 36.3 C L 74 16 136/63 97 Laboratory Results Laboratory Results WBC 5.68 K/uL (4.8-10.8) 01/24/21 00:20 RBC 4.68 M/uL (4.7-6.1) L 01/24/21 00:20 Hgb 14.0 g/dL (14.0-18.0) 01/24/21 00:20 Hct 41.3 % (42-52) L 01/24/21 00:20 MCV 88.2 fL (80-100) 01/24/21 00:20 MCH 29.9 pg (25-34) 01/24/21 00:20 MCHC 33.9 g/dL (32-36) 01/24/21 00:20 RDW Std Deviation 48.2 fL (36.4-46.3) H 01/24/21 00:20 RDW Coeff of Katalina 14.9 % (11.5-14.5) H 01/24/21 00:20 Plt Count 124 K/uL (130-400) L 01/24/21 00:20 MPV 10.4 fL (7.4-10.4) 01/24/21 00:20 Immature Gran % (Auto) 0.2 % 01/24/21 00:20 Neut % (Auto) 62.0 % 01/24/21 00:20 Lymph % (Auto) 23.4 % 01/24/21 00:20 [place] % (Auto) 11.6 % 01/24/21 00:20 Eos % (Auto) 2.6 % 01/24/21 00:20 Baso % (Auto) 0.2 % 01/24/21 00:20 Neut # (Auto) 3.52 K/uL (1.4-6.5) 01/24/21 00:20 Lymph # (Auto) 1.33 K/uL (1.2-3.4) 01/24/21 00:20 [place] # (Auto) 0.66 K/uL (0.11-0.59) H 01/24/21 00:20 Eos # (Auto) 0.15 K/uL (0-0.5) 01/24/21 00:20 Baso # (Auto) 0.01 K/uL (0-0.2) 01/24/21 00:20 Immature Gran # (Auto) 0.01 K/uL (0.00-0.02) 01/24/21 00:20 PT 10.2 Seconds (9.0-12.0) 01/24/21 00:20 INR 1.0 (0.9-1.1) 01/24/21 00:20 APTT 29.0 Seconds (21.0-31.0) 01/24/21 00:20 PTT Ratio 1.1 01/24/21 00:20 Sodium 139 mmol/L (136-145) 01/24/21 00:20 Potassium 4.1 mmol/L (3.5-5.1) 01/24/21 00:20 Chloride 108 mmol/L (98-107) H 01/24/21 00:20 Carbon Dioxide 28 mmol/L (21-32) 01/24/21 00:20 Anion Gap 3.0 (3-11) 01/24/21 00:20 BUN 28 mg/dl (7-18) H 01/24/21 00:20 Creatinine 1.20 mg/dl (0.6-1.4) 01/24/21 00:20 Est Cr Clr Drug Dosing 44.4 ml/min 01/24/21 00:20 Est GFR ( Amer) 64.9 01/24/21 00:20 Est GFR (Non-Af Amer) 56.0 01/24/21 00:20 BUN/Creatinine Ratio 23.1 (10-20) H 01/24/21 00:20 Glucose 93 mg/dl (70-99) 01/24/21 00:20 Calcium 8.8 mg/dl (8.5-10.1) 01/24/21 00:20 Magnesium 2.1 mg/dl (1.8-2.4) 01/24/21 00:20 Total Bilirubin 0.4 mg/dl (0.2-1) 01/24/21 00:20 AST 12 U/L (15-37) L 01/24/21 00:20 ALT 18 U/L (12-78) 01/24/21 00:20 Alkaline Phosphatase 84 U/L (45-117) 01/24/21 00:20 Troponin I 0.094 ng/ml (0-0.045) H* 01/24/21 00:20 NT-Pro-B Natriuret Pep 2457 pg/ml (0-1800) H 01/24/21 00:20 Total Protein 7.5 gm/dl (6.4-8.2) 01/24/21 00:20 Albumin 3.5 gm/dl (3.4-5.0) 01/24/21 00:20 Globulin 4.0 gm/dl (2.5-4.0) 01/24/21 00:20 Albumin/Globulin Ratio 0.9 (0.9-2) 01/24/21 00:20 TSH 5.020 uIu/ml (0.300-4.500) H 01/24/21 00:20 Free T4 0.89 ng/dl (0.8-1.6) 01/24/21 00:20 COVID-19 Eval Order CovFluRsv at [facility] 01/24/21 01:00 SARS-CoV-2 (PCR) NEGATIVE (Negative) 01/24/21 01:00 Influenza Type A (PCR) Negative (Neg) 01/24/21 01:00 Influenza Type B (PCR) Negative (Neg) 01/24/21 01:00 RSV (RT-PCR) Negative (Neg) 01/24/21 01:00 Diagnostic Findings Chest x-ray as per my interpretation congestion EKG as per my interpretation : Rate 85, paced rhythm
[2021-01-24] MEDS ORDERED: ACETAMINOPHEN 325 MG TAB PO PRN (04:33)
[2021-01-24] MEDS ORDERED: PROMETHAZINE HCL 6.25 MG in SODIUM CHLORIDE 0.9% 50 ML IV PRN (04:33)
[2021-01-24] MEDS ORDERED: traMADol HCL 50 MG TABLET PO PRN (04:33)
[2021-01-24] MEDS ORDERED: ALBUT/IPRATROP 3MG/0.5MG NEB 3 ML VIAL NEB PRN (04:33)
[2021-01-24] MEDS ORDERED: NITROGLYCERIN SL 0.4 MG/TAB TAB SL PRN (04:33)
--- NOTE | 2021-01-24 08:00 | XRay Report ---
XR chest 1V portable CLINICAL HISTORY: Atypical chest pain COMPARISON STUDY: 10/19/2019 FINDINGS: The heart is mildly enlarged. There are postsurgical changes of midline sternotomy. There i s a left subclavian pacer/defibrillator present. There are bilateral mixed interstitial and alveolar opacities. Likely diagnostic considerations include multifocal pneumonia versus pulmonary edema.[ IMPRESSION: 1. Cardiomegaly and bilateral pulmonary opacities. Likely diagnostic considerations include multifoca l pneumonia versus pulmonary edema. Clinical and radiographic follow-up recommended ACT 112: Negative or not required by law. Electronically signed by: Calvin Moreno M.D. 01/24/2021 7:59 AM
--- NOTE | 2021-01-24 08:35 | Cardiology Consultation ---
Date of Consultation January 24, 2021 Assessment & Plan (1) Defibrillator discharge: (2) Pneumonia: (3) Ischemic cardiomyopathy: (4) CAD (coronary artery disease): (5) PVD (peripheral vascular disease): (6) Hx of ventricular tachycardia: Severely demented 80-year-old gentleman with known ischemic cardiomyopathy status post BiV ICD placement. Received appropriate ICD shock last evening for spontaneous, sustained ventricular tachycardia. Ideally, would like to start on antiarrhythmic therapy for ventricular tachycardia suppression. The patient does have a chart history of anaphylaxis due to contrast dye, obviously, it would be a concern to start amiodarone on him which would be the ideal antiarrhythmic. I have tried to contact his to review the history of the dye allergy. Another consideration would be sotalol or Tikosyn therapy, however, given his severe dementia I do not believe he would benefit from a long-term hospital stay which will be required for loading. So at this point, I will increase his beta-blockade from metoprolol succinate 12.5 mg daily to 25 mg twice daily. In anticipation of possible blood pressure decrease with this medication change I will hold his lisinopril. I left a voicemail message for his , Kelley, on her personal voicemail and asked her to return my call to discuss. History of Present Illness Attending Physician: Chichi Brown MD History of Present Illness Mr. De Leon is a very pleasant yet severely demented 80-year-old gentleman who routinely follows with Dr. Villanueva and Mando Mcdermott of our cardiology practice. 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 He states he was feeling fine and simply laying in bed. He then awoke after receiving a shock. After the shock he felt fine denies any cardiac complaints of chest pain, shortness of breath, palpitations, lightheadedness, dizziness or syncope. I recommended ER evaluation. Upon presentation emergency department he was found to have pneumonia. His ICD was remotely interrogated by [employer] rep. And showed that he did receive an appropriate ICD shock for sustained ventricular tachycardia. Currently states he feels fine. He does not remember the events of last night. He keeps asking nursing where he is and where his is. He is very confused. Medical history as per most recent outpatient cardiology visit: 1. ASCVD 1. Inferior wall myocardial infarction in 1994 2. Status post CABG x5 in 1994, at [facility]. SVG to the first and second diagonals. SVG to the OM and PDA. EF 40% at that time. 3. Severe ischemic cardiomyopathy. Most recent EF < 20% (December 2018) 2. Nonsustained ventricular tachycardia, monomorphic ventricular tachycardia via EP study in 2000 1. Status post post single chamber [employer] ICD implantation 2. ICD discharge in 2004, successful shock for rapid ventricular tachycardia with a cycle length of 230 to 240 ms. 3. Generator exchange on June 06, 2010 4. Upgrade to a dual chamber ICD on October 18, 2019. 3. Peripheral vascular disease 4. Bilateral internal carotid artery disease 5. Hypertension 6. Dyslipidemia 7. Emphysema Allergies Allergy/AdvReac Type Severity Reaction Status Date / Time Iodinated Contrast Media Allergy Anaphylaxis Verified 01/24/21 02:17 Home Medications Medication Instructions Recorded Confirmed Type aspirin [Ecotrin Low Strength] 81 mg PO DAILY 10/18/19 01/24/21 History cholecalciferol (vitamin D3) 1,000 unit PO DAILY 10/18/19 01/24/21 History [Vitamin D3] coenzyme Q10 [Co Q-10] 100 mg PO DAILY 10/18/19 01/24/21 History cyanocobalamin (vitamin B-12) 500 mcg PO DAILY 10/18/19 01/24/21 History [Vitamin B-12] glucosamine sulfate [Glucosamine] 500 mg PO DAILY 10/18/19 01/24/21 History metoprolol succinate 25 mg PO DAILY 10/18/19 01/24/21 History omeprazole magnesium [Prilosec OTC] 20 mg PO DAILY 10/18/19 01/24/21 History rosuvastatin [Crestor] 5 mg PO Q OTHER DAY 10/18/19 01/24/21 History testosterone [AndroGel] 1 packet TRANSDERMAL DAILY 10/18/19 01/24/21 History Prevagen Es 1 dose PO DAILY 01/24/21 01/24/21 History lisinopril 10 mg PO DAILY 01/24/21 01/24/21 History Patient History Social History Smoking Status: Former smoker Tobacco Type: Cigarettes Hx Alcohol Use: No Hx Substance Use: No Preferred Language: Uzbek Communication Ability: Effective Beliefs That Will Affect Care: None Current Living Situation: Spouse Other Information That Helps Us Care for You: No Feels Safe at Home: Yes Safety Concerns: Feels Safe At This Time Assistive Devices: Denture - Upper and Denture - Lower Review of Systems Review of Systems: All systems reviewed & are unremarkable except as noted in HPI & below Physical Exam Physical Exam: General: Awake, alert and oriented x 3. No acute distress. HEENT: Normocephalic, atraumatic. Pupils equal, round and reactive to light and accommodation. Extraocular muscles are intact. Anicteric sclera. Moist mucous membranes. Neck: No JVD. No bruit. Cardiovascular: Regular. Positive S-4. Normal S-1 and S-2. No S-3. 3/6 mid to late systolic ejection murmur, greatest at the right sternal border, second intercostal space with radiation to the bilateral carotids. No rubs. Pulmonary: Clear to auscultation bilaterally. No rales, rhonchi, or wheezing. Abdomen: Bowel sounds x 4, soft. No rebound, guarding or tenderness. No organomegaly. Extremities: No clubbing, cyanosis or edema. +2 pedal pulses bilaterally. Skin: Warm and dry. Results & Data ([facility]) Vital Signs (Past 12 Hours) Vital Signs Temp Pulse Pulse Resp BP BP Pulse Ox 01/24/21 07:43 73 01/24/21 07:22 36.4 C L 80 18 137/68 97 01/24/21 04:10 36.4 C L 63 18 153/61 H 95 01/24/21 03:47 60 16 129/69 95 01/24/21 02:52 60 16 147/60 H 99 01/24/21 01:56 61 16 128/86 99 01/24/21 01:04 81 16 146/71 H 98 01/24/21 00:13 36.3 C L 74 16 136/63 97 (1) Pneumonia Laterality: right Lung location: lower lobe of lung Pneumonia type: due to unspecified organism Qualified Code(s): J18.9 - Pneumonia, unspecified organism
[2021-01-24] MEDS: CYANOCOBALAMIN 500 MCG TABLET (VITAMIN B-12) PO SCH (08:41)
[2021-01-24] MEDS: PANTOprazole 40 MG TAB PO SCH (08:41)
[2021-01-24] MEDS: ASPIRIN 81 MG ECTAB PO SCH (08:42)
[2021-01-24] MEDS: ENOXAPARIN INJ 30 MG/0.3 ML SYR SQ SCH (08:42)
[2021-01-24] MEDS ORDERED: METOPROLOL SUCC 25MG EXT REL TAB PO SCH (09:00)
[2021-01-24] MEDS ORDERED: lisinopril 10 MG TAB PO SCH (09:00)
[2021-01-24] MEDS ORDERED: ROSUVASTATIN CALCIUM 5 MG TAB PO SCH (09:00)
[2021-01-24] MEDS ORDERED: METOPROLOL SUCC 25MG EXT REL TAB PO STA (12:29)
--- NOTE | 2021-01-24 15:10 | Hospitalist Progress Note ---
Date of Service January 24, 2021 Assessment & Plan (1) Defibrillator discharge: H/O VT status post ICD Possible lead/issue as per [employer] senior telecommunications technician eval Troponin elevation secondary to above Denies any symptoms since admission [employer] evaluation showed episodes of VT and VF Appreciate cardiology input and recommendation Has been on Lopressor 25 mg twice daily and his lisinopril is on hold Community-acquired pneumonia, no sepsis Has been on intravenous ceftriaxone and doxycycline Denies any cough and/or fever and no shortness of breath at rest Chronic systolic heart failure secondary to ischemic cardiomyopathy, No active CHF symptoms currently Has not been getting any diuretics for now CAD status post CABG/PVD as per records No acute chest pain Hypertension, stable Hyperlipidemia on statin Rx COPD as per records, not in acute exacerbation despite pneumonia Continue nebulized bronchodilators as needed Mood disorder, at baseline Past tobacco abuse DVT prophylaxis per Lovenox subcu Full code Patient requesting updates from providers. Ms. Kelley Kim, contact #[phone]. Admission and Anticipated Discharge Date Admission Date: January 24, 2021 Subjective 01/24/2021 The patient was seen and examined in telemetry unit He has significant dementia and complained that he has had numerous spontaneous firing of ICD a few weeks ago He denies any significant pain and/or distress during examination Review of Systems Review of Systems: Unobtainable due to cognitive status Physical Exam Physical Exam: Sitting on chair without any acute distress Constitutional: average body habitus; not ill appearing Eyes: PERRL, conjunctivae normal, anicteric sclerae ENMT: external ear and nose normal, oropharynx normal Neck: trachea midline, no thyromegaly Respiratory: no respiratory distress Auscultation: lungs clear to auscultation bilaterally Cardiovascular: Rate/Rhythm: regular rate and regular rhythm Heart Sounds: + murmur (2016 [facility] over precordium) Extremities: + edema (1+ edema bilaterally) Gastrointestinal (Abdomen): Inspection/Auscultation: normal bowel sounds; abdomen not distended Percussion/Palpation: abdomen soft; abdomen nontender Musculoskeletal: No acute arthritis in any joint Neurologic: Alert, awake. Pleasantly confused Psychiatric: Insight: + poor insight Results & Data Results & Data [facility]) Vital Signs (Past 12 Hours) Vital Signs Temp Pulse Pulse Resp BP BP Pulse Ox 01/24/21 15:03 36.4 C L 84 18 129/67 96 01/24/21 11:14 36.4 C L 91 H 18 115/68 94 01/24/21 07:43 73 01/24/21 07:22 36.4 C L 80 18 137/68 97 01/24/21 04:10 36.4 C L 63 18 153/61 H 95 01/24/21 03:47 60 16 129/69 95 Laboratory Results Short CBC 01/24/21 Range/Units 00:20 WBC 5.68 (4.8-10.8) K/uL Hgb 14.0 (14.0-18.0) g/dL Hct 41.3 L (42-52) % Plt Count 124 L (130-400) K/uL BMP 01/24/21 00:20 Sodium 139 Potassium 4.1 Chloride 108 H Carbon Dioxide 28 BUN 28 H Creatinine 1.20 Glucose 93 Calcium 8.8 Cardiac Enzymes 01/24/21 01/24/21 Range/Units 00:20 05:24 Troponin I 0.094 H* 0.131 H* (0-0.045) ng/ml Liver Function 01/24/21 Range/Units 00:20 Total Bilirubin 0.4 (0.2-1) mg/dl AST 12 L (15-37) U/L ALT 18 (12-78) U/L Alkaline Phosphatase 84 (45-117) U/L Albumin 3.5 (3.4-5.0) gm/dl Medications Administered Current Inpatient Medications Acetaminophen (Acetaminophen 325 Mg Tab) 650 mg PO Q4H PRN PRN Reason: Pain or Fever Stop: 02/23/21 04:32 Albuterol (Albut/Ipratrop 3mg/0.5mg Neb 3 Ml Vial) 3 ml NEB Q2H PRN PRN Reason: Wheezing Stop: 02/23/21 04:32 Aspirin (Aspirin 81 Mg Ectab) 81 mg PO DAILY ROBERTO Stop: 02/23/21 08:59 Last Admin: 01/24/21 08:42 Dose: 81 mg Documented by: Cyanocobalamin (Cyanocobalamin 500 Mcg Tablet (Vitamin B-12)) 500 mcg PO DAILY ROBERTO Stop: 02/23/21 08:59 Last Admin: 01/24/21 08:41 Dose: 500 mcg Documented by: Doxycycline Hyclate (Doxycycline Hyclate 100 Mg Cap) 100 mg PO BID ROBERTO Stop: 01/31/21 20:59 Enoxaparin Sodium (Enoxaparin Inj 30 Mg/0.3 Ml Syr) 30 mg SQ QAM [facility] Stop: 02/23/21 08:59 Last Admin: 01/24/21 08:42 Dose: 30 mg Documented by: Promethazine HCl 6.25 mg/ (Sodium Chloride) 50.25 mls @ 201 mls/hr IV Q6H PRN PRN Reason: Nausea And Vomiting Stop: 02/23/21 04:32 Ceftriaxone Sodium 2,000 mg/ (Dextrose) 70 mls @ 100 mls/hr IV Q24H [facility]; Protocol Stop: 01/31/21 21:59 Lisinopril (Lisinopril 10 Mg Tab) 10 mg PO DAILY [facility] Stop: 02/23/21 08:59 Last Admin: 01/24/21 08:42 Dose: 10 mg Documented by: Metoprolol Succinate (Metoprolol Succ 25mg Ext Rel Tab) 25 mg PO BID [facility] Stop: 02/23/21 20:59 Nitroglycerin (Nitroglycerin Sl 0.4 Mg/Tab Tab) 0.4 mg SL UD PRN PRN Reason: Chest Pain Stop: 02/23/21 04:32 Pantoprazole Sodium (Pantoprazole 40 Mg Tab) 40 mg PO DAILY [facility] Stop: 02/23/21 08:59 Last Admin: 01/24/21 08:41 Dose: 40 mg Documented by: Rosuvastatin Calcium (Rosuvastatin Calcium 5 Mg Tab) 5 mg PO Q48H ROBERTO Stop: 02/23/21 08:59 Last Admin: 01/24/21 08:42 Dose: 5 mg Documented by: Tramadol HCl (Tramadol Hcl 50 Mg Tablet) 25 - 50 mg PO Q4H PRN PRN Reason: Pain Stop: 02/23/21 04:32
--- NOTE | 2021-01-24 16:38 | Electrocardiogram Report ---
Test Reason : Blood Pressure : / mmHG Vent. Rate : 085 BPM Atrial Rate : 084 BPM P-R Int : 000 ms QRS Dur : 118 ms QT Int : 366 ms P-R-T Axes : 000 -05 112 degrees QTc Int : 435 ms Atrial-paced rhythm with long [place] interval Possible Inferior infarct (cited on or before 18-OCT-2019) Abnormal ECG When compared with ECG of 18-OCT-2019 13:53, ST no longer elevated in Inferior leads Nonspecific T wave abnormality no longer evident in Anterior leads [place] interval has lengthened Confirmed by Garcia Merchant ([id number]) on 01/24/2021 4:38:08 PM Referred By: Mando Mcdermott Confirmed By:Bryant Merchant
[2021-01-24] MEDS: METOPROLOL SUCC 25MG EXT REL TAB PO SCH (20:10)
[2021-01-24] MEDS: DOXYCYCLINE HYCLATE 100 MG CAP PO SCH (20:10)
[2021-01-24] MEDS ORDERED: cefTRIAXone SODIUM 2,000 MG in DEXTROSE 5% 50 ML IV SCH (22:00)
[2021-01-25 06:47] LABS: Eosinophils # (auto) 0.08 K/uL (0-0.5); Eosinophils % (auto) 1.2 %; Hematocrit (blood only) 40.8 % (42-52); Hemoglobin 13.4 g/dL (14.0-18.0); Immature Granulocytes # (auto) 0.01 K/uL (0.00-0.02); Immature Granulocytes % (auto) 0.1 %; Lymphocytes # (auto) 0.99 K/uL (1.2-3.4); Lymphocytes % (auto) 14.3 %; Mean Corpuscular Hemoglobin 28.9 pg (25-34); Mean Corpuscular Hgb Conc 32.8 g/dL (32-36); Mean Corpuscular Volume 87.9 fL (80-100); Mean Platelet Volume 11.1 fL (7.4-10.4); Monocytes # (auto) 0.83 K/uL (0.11-0.59); Neutrophils # (auto) 5.01 K/uL (1.4-6.5); Neutrophils % (auto) 72.4 %; Platelet Count 110 K/uL (130-400); RDW Coefficient of Variation 14.9 % (11.5-14.5); RDW Standard Deviation 47.7 fL (36.4-46.3); Red Blood Count 4.64 M/uL (4.7-6.1); White Blood Count 6.92 K/uL (4.8-10.8)
[2021-01-25 07:15] LABS: BUN Creatinine Ratio 24.6 (10-20); Calcium 8.8 mg/dl (8.5-10.1); Creatinine Clr Calc Pharmacy 45.8 ml/min; Est GFR (African American) 67.6; Est GFR (Non-African American) 58.3; Magnesium 1.9 mg/dl (1.8-2.4); Phosphorus 2.7 mg/dl (2.5-4.9)
[2021-01-25] MEDS: DOXYCYCLINE HYCLATE 100 MG CAP PO SCH (07:53)
[2021-01-25] MEDS: ASPIRIN 81 MG ECTAB PO SCH (07:53)
[2021-01-25] MEDS: METOPROLOL SUCC 25MG EXT REL TAB PO SCH (07:54)
[2021-01-25] MEDS: PANTOprazole 40 MG TAB PO SCH (07:55)
[2021-01-25] MEDS: ENOXAPARIN INJ 30 MG/0.3 ML SYR SQ SCH (07:56)
[2021-01-25] MEDS: CYANOCOBALAMIN 500 MCG TABLET (VITAMIN B-12) PO SCH (07:56)
[2021-01-25] MEDS ORDERED: METOPROLOL SUCC 25MG EXT REL TAB PO STA (09:32)
--- NOTE | 2021-01-25 12:06 | Palliative Care Consultation ---
Date of Consultation January 25, 2021 Assessment & Plan (1) Palliative care encounter: I spoke with Mr. Kim at bedside. He is clearly confused but does have some insight into his medical problems. I asked him what his worries were about his health and he expressed concern about what would happen to his family when he dies. He told me that he was not afraid of dying and when it is his time to , he is ready. I also spoke with Mrs. Kim on the phone. She tells me that she is working two jobs and that Javier is frequently at home alone. He has been calling her several times a day on her phone. She is considering stopping one of her jobs to be at home more. She does have a daughter, Ashley, who is supportive to her and Javier. Mrs Kim told me that they have advance directives and that he had indicated that he would not want to be kept alive on machines if he could not get better and be active. We talked about the likelihood that if his heart or breathing stopped and he had CPR, he would not return to his prior level of function which is already declining with his dementia. She does not think that he would want CPR but does want to continue ICD for now, as well as other care, including hospitalization, if indicated. Code status is changed to reflect this. Mrs Kim also expressed concern that Javier is depressed. He has been talking about feeling empty. He is sleeping more and his appetite has decreased. She is concerned because he has guns at home. I encouraged her to remove the guns from the home for safety. I also encouraged her to discuss this further with Jvaier's primary care provider. He is a and [facility]. She reports that he was not a combat . I spoke with case management with an update on Mrs. Kim's concerns. She will contact her to discuss possible support from office of aging. (2) CAD (coronary artery disease): (3) Ischemic cardiomyopathy: (4) Biventricular ICD (implantable cardioverter-defibrillator) in place: (5) Defibrillator discharge: History of Present Illness Reason for Consultation: goals of care Requesting Physician: Dr. Granados Attending Physician: Chichi Brown MD History of Present Illness Pleasant 80 yo gentleman with CAD and ischemic cardiomyopathy with an EF of 20- 25% on most recent echo. He has had paroxysmal ventricular tachycardia with ICD. He was admitted after his ICD fired at home. He has elevated BNP and troponin on admission. He was also reported to have a one week history of cough and is being treated for pneumonia. He is ambulatory in the hallways and reports feeling good. He denies pain or dyspnea. He tells me that he does recall being shocked and that it felt like touching an electric fence. He definitely has some confusion and is insistent that someone has stolen his pants and three pairs of shoes. However, he is able to tell me where he lives and who he lives with. He is able to tell me that he has an ICD and what it does. We have been consulted to assist with goals of care. Allergies Allergy/AdvReac Type Severity Reaction Status Date / Time Iodinated Contrast Media Allergy Anaphylaxis Verified 01/24/21 02:17 Home Medications Medication Instructions Recorded Confirmed Type aspirin [Ecotrin Low Strength] 81 mg PO DAILY 10/18/19 01/24/21 History cholecalciferol (vitamin D3) 1,000 unit PO DAILY 10/18/19 01/24/21 History [Vitamin D3] coenzyme Q10 [Co Q-10] 100 mg PO DAILY 10/18/19 01/24/21 History cyanocobalamin (vitamin B-12) 500 mcg PO DAILY 10/18/19 01/24/21 History [Vitamin B-12] glucosamine sulfate [Glucosamine] 500 mg PO DAILY 10/18/19 01/24/21 History metoprolol succinate 25 mg PO DAILY 10/18/19 01/24/21 History omeprazole magnesium [Prilosec OTC] 20 mg PO DAILY 10/18/19 01/24/21 History rosuvastatin [Crestor] 5 mg PO Q OTHER DAY 10/18/19 01/24/21 History testosterone [AndroGel] 1 packet TRANSDERMAL DAILY 10/18/19 01/24/21 History Prevagen Es 1 dose PO DAILY 01/24/21 01/24/21 History lisinopril 10 mg PO DAILY 01/24/21 01/24/21 History Patient History Social History Smoking Status: Former smoker Tobacco Type: Cigarettes Hx Alcohol Use: No Hx Substance Use: No Preferred Language: Argentine Communication Ability: Effective Beliefs That Will Affect Care: None Current Living Situation: Spouse Other Information That Helps Us Care for You: No Feels Safe at Home: Yes Safety Concerns: Feels Safe At This Time Assistive Devices: Denture - Upper and Denture - Lower Review of Systems Review of Systems: [place] Symptom Assessment Scale Pain 0/3 Nausea 0/3 Dyspnea 0/3 Drowsiness 0/3 Anxiety 0/3 Palliative Performance Score 60% Physical Exam Constitutional: + thin; no acute distress Eyes: PERRL, conjunctivae normal, anicteric sclerae ENMT: external ear and nose normal, oropharynx normal Respiratory: normal respiratory effort; no labored breathing Cardiovascular: Rate/Rhythm: + irregularly irregular Gastrointestinal (Abdomen): Inspection/Auscultation: abdomen not distended Musculoskeletal: Extremities: + muscle atrophy Neurologic: awake and + confused; no focal motor deficits Psychiatric: Orientation: alert and oriented to person Results & Data ([facility]) Vital Signs (Past 12 Hours) Vital Signs Temp Pulse Pulse Pulse Resp BP Pulse Ox 01/25/21 11:29 97.9 F 67 20 120/63 95 01/25/21 08:48 86 01/25/21 08:42 01/25/21 07:19 98.6 F 77 18 133/60 94 01/25/21 03:01 98.4 F 70 19 127/70 93 Pulse Ox 01/25/21 11:29 01/25/21 08:48 01/25/21 08:42 94 01/25/21 07:19 01/25/21 03:01 PG Care Time/CCT Total # of Minutes Spent Total Time Spent with Patient: Total time spent is greater than 50% in coordination of care (as documented) at patient's floor/unit and/or counseling patient: Total time spent 80 minutes with more than 50% of time spent on goals of care, symptom management, family support and coordination of care. Coding Level of Care Code 31462 Inpt Consult Level 4 Diagnoses Palliative care encounter Z51.5 CAD (coronary artery disease) I25.10 Ischemic cardiomyopathy I25.5 Biventricular ICD (implantable cardioverter-defibrillator) in place Z95.810 Defibrillator discharge Z45.02
--- NOTE | 2021-01-25 12:35 | Cardiology Progress Note ---
Date of Service January 25, 2021 Assessment & Plan (1) Defibrillator discharge: (2) Pneumonia: (3) Ischemic cardiomyopathy: (4) CAD (coronary artery disease): (5) PVD (peripheral vascular disease): (6) Hx of ventricular tachycardia: Severely demented 80-year-old gentleman with known ischemic cardiomyopathy status post BiV ICD placement. Received appropriate ICD shock last evening for spontaneous, sustained ventricular tachycardia. Ideally, would like to start on antiarrhythmic therapy for ventricular tachycardia suppression. The patient does have a chart history of anaphylaxis due to contrast dye, obviously, it would be a concern to start amiodarone on him which would be the ideal antiarrhythmic. I have confirmed history of anaphylaxis after discussion with his . Another consideration would be sotalol or Tikosyn therapy, however, given his severe dementia I do not believe he would benefit from a long-term hospital stay which will be required for loading. Clinically, there is been no further sustained arrhythmias with up titration of beta-blockade and he is tolerating well from a hemodynamic standpoint. Okay to DC to home from a cardiac standpoint on current dose of beta-indy. I have asked our palliative care colleague to discuss goals of care and CODE STATUS with patient and his family. Admission and Anticipated Discharge Date Admission Date: January 24, 2021 Subjective Patient seen and examined, chart reviewed. Remains very confused. Denies any complaints. Believes that the hospital staff is stealing from him. Is anxious for discharge. Telemetry reviewed: Paced rhythm with occasional ventricular ectopy but no sustained arrhythmias. Review of Systems Review of Systems: Unobtainable due to cognitive status Physical Exam Physical Exam: General: Awake, alert and oriented to person and place. No acute distress. HEENT: Normocephalic, atraumatic. Pupils equal, round and reactive to light and accommodation. Extraocular muscles are intact. Anicteric sclera. Moist mucous membranes. Neck: No JVD. No bruit. Cardiovascular: Regular. Positive S-4. Normal S-1 and S-2. No S-3. 3/6 mid to late systolic ejection murmur, greatest at the right sternal border, second intercostal space with radiation to the bilateral carotids. No rubs. Pulmonary: Clear to auscultation bilaterally. No rales, rhonchi, or wheezing. Abdomen: Bowel sounds x 4, soft. No rebound, guarding or tenderness. No organomegaly. Extremities: No clubbing, cyanosis or edema. +2 pedal pulses bilaterally. Skin: Warm and dry. Results & Data ([facility]) Vital Signs (Past 12 Hours) Vital Signs Temp Pulse Pulse Pulse Resp BP Pulse Ox 01/25/21 11:29 36.6 C 67 20 120/63 95 01/25/21 08:48 86 01/25/21 08:42 01/25/21 07:19 37 C 77 18 133/60 94 01/25/21 03:01 36.9 C 70 19 127/70 93 Pulse Ox 01/25/21 11:29 01/25/21 08:48 01/25/21 08:42 94 01/25/21 07:19 01/25/21 03:01 (1) Pneumonia Laterality: right Lung location: lower lobe of lung Pneumonia type: due to unspecified organism Qualified Code(s): J18.9 - Pneumonia, unspecified organism
[2021-01-25] MEDS ORDERED: CITALOPRAM 20 MG TAB PO SCH (13:30)
--- NOTE | 2021-01-25 14:18 | Hospitalist Progress Note ---
Date of Service January 25, 2021 Assessment & Plan (1) Defibrillator discharge: H/O VT status post ICD Possible lead/issue as per [employer] thermoplastic technician eval Troponin elevation secondary to above Denies any symptoms since admission [employer] evaluation showed episodes of VT and VF Appreciate cardiology input and recommendation Has been on Lopressor 25 mg twice daily and his lisinopril is on hold Beta-indy dose has been increased to 50 mg daily twice daily Will be discharged home this afternoon Community-acquired pneumonia, no sepsis Has been on intravenous ceftriaxone and doxycycline Denies any cough and/or fever and no shortness of breath at rest Chest x-ray did not show any definitive pneumonia and white counts remain unremarkable We will continue with oral doxycycline for the next 4 days Chronic systolic heart failure secondary to ischemic cardiomyopathy, No active CHF symptoms currently Has not been getting any diuretics for now CAD status post CABG/PVD as per records No acute chest pain Hypertension, stable Hyperlipidemia on statin Rx COPD as per records, not in acute exacerbation despite pneumonia Continue nebulized bronchodilators as needed Mood disorder, at baseline wants to try some antidepressant medication Celexa 20 mg p.o. once daily been started Past tobacco abuse DVT prophylaxis per Lovenox subcu Full code Patient requesting updates from providers. Ms. Kelley Kim, contact #[phone]. Will be discharged home this afternoon Admission and Anticipated Discharge Date Admission Date: January 24, 2021 Subjective 01/24/2021 The patient was seen and examined in telemetry unit He has significant dementia and complained that he has had numerous spontaneous firing of ICD a few weeks ago He denies any significant pain and/or distress during examination 01/25/2021 The patient was seen and examined in telemetry unit He has been stable without any pain and/or palpitation Monitor did not show any recurrence of VT He has been ambulating without any difficulties Review of Systems Review of Systems: As per HPI, all 10 systems reviewed, all other ROS negative Physical Exam Physical Exam: Sitting on chair without any acute distress Constitutional: average body habitus; not ill appearing Eyes: PERRL, conjunctivae normal, anicteric sclerae ENMT: external ear and nose normal, oropharynx normal Neck: trachea midline, no thyromegaly Respiratory: no respiratory distress Auscultation: lungs clear to auscultation bilaterally Cardiovascular: Rate/Rhythm: regular rate and regular rhythm Heart Sounds: + murmur (2016 ESM over precordium) Extremities: + edema (1+ edema bilaterally) Gastrointestinal (Abdomen): Inspection/Auscultation: normal bowel sounds; abdomen not distended Percussion/Palpation: abdomen soft; abdomen nontender Musculoskeletal: No acute arthritis in any joint Neurologic: Alert and awake. Pleasantly confused secondary to history of dementia Psychiatric: Insight: + poor insight Results & Data Results & Data ([facility]) Vital Signs (Past 12 Hours) Vital Signs Temp Pulse Pulse Pulse Resp BP Pulse Ox 01/25/21 11:29 36.6 C 67 20 120/63 95 01/25/21 08:48 86 01/25/21 08:42 01/25/21 07:19 37 C 77 18 133/60 94 01/25/21 03:01 36.9 C 70 19 127/70 93 Pulse Ox 01/25/21 11:29 01/25/21 08:48 01/25/21 08:42 94 01/25/21 07:19 01/25/21 03:01 Laboratory Results Short CBC 01/25/21 Range/Units 06:10 WBC 6.92 (4.8-10.8) K/uL Hgb 13.4 L (14.0-18.0) g/dL Hct 40.8 L (42-52) % Plt Count 110 L (130-400) K/uL BMP 01/25/21 06:10 Sodium 139 Potassium 4.0 Chloride 108 H Carbon Dioxide 26 BUN 28 H Creatinine 1.16 Glucose 120 H Calcium 8.8 Medications Administered Current Inpatient Medications Acetaminophen (Acetaminophen 325 Mg Tab) 650 mg PO Q4H PRN PRN Reason: Pain or Fever Stop: 02/23/21 04:32 Albuterol (Albut/Ipratrop 3mg/0.5mg Neb 3 Ml Vial) 3 ml NEB Q2H PRN PRN Reason: Wheezing Stop: 02/23/21 04:32 Aspirin (Aspirin 81 Mg Ectab) 81 mg PO DAILY [facility] Stop: 02/23/21 08:59 Last Admin: 01/25/21 07:53 Dose: 81 mg Documented by: Citalopram Hydrobromide (Citalopram 20 Mg Tab) 20 mg PO QAM [facility] Stop: 02/24/21 13:29 Cyanocobalamin (Cyanocobalamin 500 Mcg Tablet (Vitamin B-12)) 500 mcg PO DAILY [facility] Stop: 02/23/21 08:59 Last Admin: 01/25/21 07:56 Dose: 500 mcg Documented by: Doxycycline Hyclate (Doxycycline Hyclate 100 Mg Cap) 100 mg PO BID [facility] Stop: 01/31/21 20:59 Last Admin: 01/25/21 07:53 Dose: 100 mg Documented by: Enoxaparin Sodium (Enoxaparin Inj 30 Mg/0.3 Ml Syr) 30 mg SQ QAM [facility] Stop: 02/23/21 08:59 Last Admin: 01/25/21 07:56 Dose: 30 mg Documented by: Promethazine HCl 6.25 mg/ (Sodium Chloride) 50.25 mls @ 201 mls/hr IV Q6H PRN PRN Reason: Nausea And Vomiting Stop: 02/23/21 04:32 Ceftriaxone Sodium 2,000 mg/ (Dextrose) 70 mls @ 100 mls/hr IV Q24H [facility]; Protocol Stop: 01/31/21 21:59 Last Infusion: 01/24/21 23:05 Dose: Infused Documented by: Lisinopril (Lisinopril 10 Mg Tab) 10 mg PO DAILY [facility] Stop: 02/23/21 08:59 Last Admin: 01/24/21 08:42 Dose: 10 mg Documented by: Metoprolol Succinate (Metoprolol Succ 50mg Ext Rel Tab) 50 mg PO BID [facility] Stop: 02/24/21 20:59 Nitroglycerin (Nitroglycerin Sl 0.4 Mg/Tab Tab) 0.4 mg SL UD PRN PRN Reason: Chest Pain Stop: 02/23/21 04:32 Pantoprazole Sodium (Pantoprazole 40 Mg Tab) 40 mg PO DAILY [facility] Stop: 02/23/21 08:59 Last Admin: 01/25/21 07:55 Dose: 40 mg Documented by: Rosuvastatin Calcium (Rosuvastatin Calcium 5 Mg Tab) 5 mg PO Q48H [facility] Stop: 02/23/21 08:59 Last Admin: 01/24/21 08:42 Dose: 5 mg Documented by: Tramadol HCl (Tramadol Hcl 50 Mg Tablet) 25 - 50 mg PO Q4H PRN PRN Reason: Pain Stop: 02/23/21 04:32
[2021-01-25] MEDS ORDERED: METOPROLOL SUCC 50MG EXT REL TAB PO SCH (21:00)
--- NOTE | 2021-01-26 11:29 | Discharge Summary ---
Date of Service January 26, 2021 Admission HPI Per Admitting Provider History obtained from patient, family, and records. Patient is a fair historian. Medical history significant for chronic systolic heart failure secondary to ischemic cardiomyopathy (EF 20-24%, TTE 2019), CAD status post CABG, PVD as per records, paroxysmal VT status post ICD, hypertension, hyperlipidemia, COPD as per records, mood disorder, past tobacco abuse. Last confinement October 2019 under [facility] cardiology EPS service for ICD battery depletion. Patient single-chamber ICD upgraded to dual-chamber rate responsive ICD under fluoroscopic guidance. Patient device reprogrammed secondary to lead sensing issues October 2020. Patient ICD showing alert tones about 2 months ago. No chest pain, S OB, no device activation. Patient met [employer] dealer compliance representative at [facility]. Alert setting change as per documentation. Patient noted worsening junky cough symptoms for the patient last week. Patient may not be as aware of cough because of forgetfulness as per . Patient denies chest pain, S OB, fever, chills. Patient denies aspiration. Denies recent COVID-19 contacts. Patient roused from sleep this a.m. from defibrillator shock. Transient achy left-sided chest pain without other symptoms. Patient denies S OB or fluid retention. Compliant with home medications. At the ER, Ceftriaxone and Doxycycline given for pneumonia. 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 Admission Exam Per Admitting Provider Physical Exam: GENERAL: Comfortable, pleasant, oriented to year, no respiratory distress SKIN: Normal color, warm HEENT: Alopecia, pink palpebral conjunctivae, no ptosis, dry buccal mucosa NECK : Supple, no tenderness CHEST : Decreased breath sounds, no tenderness HEART : diminished S1-S2, no obvious murmurs ABDOMEN: Some distention, nontender EXTREMITIES : No LE swelling/tenderness, no other conspicuous deformities noted NEUROLOGIC : Coherent, oriented to year, no facial asymmetry, no other gross focality Principal Diagnosis Discharge of defibrillator, pneumonia, ventricular tachycardia, ischemic cardiomyopathy, PVD, COPD Discharge Exam Constitutional average body habitus; not ill appearing Eyes PERRL, conjunctivae normal, anicteric sclerae ENMT external ear and nose normal, oropharynx normal Neck trachea midline, no thyromegaly Respiratory no respiratory distress Auscultation: lungs clear to auscultation bilaterally Cardiovascular Rate/Rhythm: regular rate and regular rhythm Heart Sounds: + murmur (2016 ESM over precordium) Extremities: + edema (1+ edema bilaterally) Gastrointestinal (Abdomen) Inspection/Auscultation: normal bowel sounds; abdomen not distended Percussion/Palpation: abdomen soft; abdomen nontender Psychiatric Insight: + poor insight Discharge Data Allergies Allergy/AdvReac Type Severity Reaction Status Date / Time Iodinated Contrast Media Allergy Anaphylaxis Verified 01/24/21 02:17 Consultations 01/24/21 02:46 ED Decision to Admit Stat 01/24/21 04:33 Consult Cardiology Routine 01/25/21 09:19 Consult Palliative Care Routine Hospital Course (1) Defibrillator discharge: H/O VT status post ICD Possible lead/issue as per [employer] geological technician eval Troponin elevation secondary to above Denies any symptoms since admission [employer] evaluation showed episodes of VT and VF Appreciate cardiology input and recommendation Has been on Lopressor 25 mg twice daily and his lisinopril is on hold Beta-indy dose has been increased to 50 mg daily twice daily Will be discharged home this afternoon Community-acquired pneumonia, no sepsis Has been on intravenous ceftriaxone and doxycycline Denies any cough and/or fever and no shortness of breath at rest Chest x-ray did not show any definitive pneumonia and white counts remain unremarkable We will continue with oral doxycycline for the next 4 days Chronic systolic heart failure secondary to ischemic cardiomyopathy, No active CHF symptoms currently Has not been getting any diuretics for now CAD status post CABG/PVD as per records No acute chest pain Hypertension, stable Hyperlipidemia on statin Rx COPD as per records, not in acute exacerbation despite pneumonia Continue nebulized bronchodilators as needed Mood disorder, at baseline wants to try some antidepressant medication Celexa 20 mg p.o. once daily been started Past tobacco abuse DVT prophylaxis per Lovenox subcu Full code Patient requesting updates from providers. Jerome Kelley Kim, contact #[phone]. Will be discharged home this afternoon Total Time Total Time Spent Total Time Spent (In Minutes): 35 minutes Total Time Includes: Examination of the Patient, Discharge Planning, Medication Reconciliation and Communication With Other Providers Discharge Plan Discharge Items Patient Disposition: Home - Self-Care Reason For Visit: ICED FIRING, CAP Discharge Diagnosis: Discharge of defibrillator, pneumonia, ventricular tachycardia, ischemic cardiomyopathy, PVD, COPD Condition on Discharge: Fair Activity: Resume your previous activity Non-emergency contact: Primary Care Provider Call non-emergency contact if: you have any medication questions and your s ymptoms worsen Follow-up/Referrals: PCP,NO [Primary Care Provider] - Diet: Heart Healthy Addtl Attending Provider Instructions: Please take precautions to avoid fall Take your medications as directed Please keep/make appointments with your PCP and consumer analyst Pending Studies at Discharge: No Stand-Alone Forms: My [facility] [employer], Smoking Cessation Medications and DC Order Prescriptions: New doxycycline hyclate 100 mg Capsule 100 mg PO BID Qty: 10 RF: 0 metoprolol succinate 50 mg Tablet Extended Release 24 Hr 50 mg PO BID Qty: 60 RF: 0 escitalopram oxalate [Lexapro] 5 mg tablet 5 mg PO DAILY Qty: 30 RF: 0 Continued glucosamine sulfate [Glucosamine] 500 mg Tablet 500 mg PO DAILY RF: 0 aspirin [Ecotrin Low Strength] 81 mg Tablet,Delayed Release (Dr/Ec) 81 mg PO DAILY RF: 0 metoprolol succinate 25 mg Tablet Extended Release 24 Hr 25 mg PO DAILY RF: 0 testosterone [AndroGel] 1 % (25 mg/2.5gram) Gel In Packet 1 packet TRANSDERMAL DAILY RF: 0 coenzyme Q10 [Co Q-10] 100 mg Capsule 100 mg PO DAILY RF: 0 rosuvastatin [Crestor] 20 mg Tablet 5 mg PO Q OTHER DAY RF: 0 omeprazole magnesium [Prilosec OTC] 20 mg Tablet,Delayed Release (Dr/Ec) 20 mg PO DAILY RF: 0 cyanocobalamin (vitamin B-12) [Vitamin B-12] 500 mcg Lozenge 500 mcg PO DAILY RF: 0 cholecalciferol (vitamin D3) [Vitamin D3] 1,000 unit Tablet,Chewable 1,000 unit PO DAILY RF: 0 lisinopril 20 mg Tablet 10 mg PO DAILY RF: 0 Prevagen Es 1 dose PO DAILY RF: 0 Discharge Orders: Discharge Order (Routine); Ordered 01/25/21 Ordered By: Chichi Brown Admission Data Admit Date/Time: 01/24/21 03:21 Attending Provider: Chichi Brown Admit Provider: Sajan Woodall Primary Care Provider: PCP,NO Other Providers: Sajan Woodall ; Mauricio Granados ; Deana Awan. Other Interventions: Discharge Summary Assessment (RN) Last Done: 01/25/21 14:50
--- NOTE | 2021-01-29 16:00 | Coding Query ---
CODING QUERY To promote full compliance with coding requirements relating to patient care, provider participation is requested in all cases of business machine operator uncertainty. Please assist us with the question(s) below: Coding Question(s): Cardiology documented that AICD fired appropriately. " Received appropriate ICD shock last evening for spontaneous,sustained ventricular tachycardia".. No intervention was done to correct any lead problems with the AICD.No complications were associated with the AICD. The Discharge Summary stated : "Defibrillator Discharge-H/O VT S/P ICD". [employer] evaluation showed episodes of VT & VF. Per Ux Developer Designer, possible lead issues. Please document the final diagnosis . Thanks for your help! Darwin Mccarthy [facility] Physician's Response(s): Since Mail Inserter did not mention about any lead issue ,I will not put that in the diagnosis. "Defibrillator Discharge-H/O VT S/P ICD" is same as" Received appropriate ICD shock last evening for spontaneous,sustained ventricular tachycardia" No other actions were not needed to correct the possible lead issues which was ruled out by the international coordinator. Principal Diagnosis: "that condition established after study, to be chiefly responsible for occasioning the admission of the patient to the hospital for care." Co-Existing Principal Diagnosis: "when two or more diagnoses equally meet the criteria for principal diagnosis as determined by the circumstances of admission, diagnostic work up, and/or therapy provided, and the Alphabetic Index, Tabular List, or another coding guideline does not provide sequencing direction, any one of the diagnoses may be sequenced first." "When the physician has documented what appears to be a current diagnosis in the body of the record, but has not included the diagnosis in the final diagnostic statement, the physician should be asked whether the diagnosis should be added." (Source [facility]oding [facility] 2 QTR90. p3-4) MTDD
== END 2021-01-25 15:35 | disposition home or self-care (01) | DRG 308 ==
LOC: ED 00:09 → 2S 03:21

== ENCOUNTER 2021-06-01 14:52 | Inpatient (IN) ==
--- NOTE | 2021-06-01 15:31 | Emergency Department Note ---
History of Present Illness General Chief complaint: Cardiac Assessment Stated complaint: PROBLEMS WITH HIS ICD IMPLANT Time Seen by Provider: 06/01/21 15:14 Source: patient and family History of Present Illness Provider complaint: Defibrillator fired Onset (ago): hour(s) Location: chest Pain Consistency: + intermittent and + now resolved Maximum Pain Intensity: 0 Quality: + other (Electric shock) Exacerbated By: + none Associated symptoms: + confusion; no chest pain, no cough, no fever/chills, no headaches, no nausea/vomiting, no shortness of breath or no weakness This is an 80-year-old male with a history of ventricular tachycardia with a pacemaker defibrillator implantation presenting with firing of his defibrillator twice since last night. Patient stated that it first occurred about 7:30 PM yesterday while he was mowing his grass on a riding mower. He states that he had no symptoms prior to it happening. He felt like the mower might have shocked him. He stopped mowing and came back inside. He had no symptoms and then today at 1 PM he wanted to finish the mowing and so he went back on the riding mower and developed another shock while riding a mower. Again he had no symptoms prior to this occurring. He had no symptoms afterwards. He only felt the electric shock in his chest. He denies having any chest discomfort or pain. He is not short of breath. He does not feel weak. He has no fever, cough or cold symptoms, abdominal pain, vomiting or diarrhea. He denies any leg swelling or pain. He has had the Covid vaccine. He was previously on a blood thinner but he was recently taken off about a day and a half ago. He had a prior history of PE but his director of scientific research and public health nurse felt that he did not need to be on the blood thinner anymore. His states that he has had some periods of confusion recently. Home Medications Medication Instructions Recorded Confirmed Type aspirin 81 mg tablet,delayed 81 mg PO DAILY 10/18/19 06/01/21 History release (Ecotrin Low Strength) cholecalciferol (vitamin D3) 25 1,000 unit PO DAILY 10/18/19 06/01/21 History mcg (1,000 unit) chewable tablet (Vitamin D3) coenzyme Q10 100 mg capsule (Co 100 mg PO DAILY 10/18/19 06/01/21 History Q-10) cyanocobalamin (vitamin B-12) 500 1,000 mcg PO DAILY 10/18/19 06/01/21 History mcg lozenges (Vitamin B-12) glucosamine sulfate 500 mg tablet 500 mg PO DAILY 10/18/19 06/01/21 History (Glucosamine) omeprazole magnesium 20 mg 20 mg PO DAILY 10/18/19 06/01/21 History tablet,delayed release (Prilosec OTC) escitalopram oxalate 5 mg tablet 5 mg PO DAILY #30 tab 01/25/21 06/01/21 Rx (Lexapro) albuterol sulfate 90 mcg/actuation 1 puff INHALATION QID PRN 06/01/21 06/01/21 History aerosol inhaler clotrimazole 1 % topical cream 1 applic TOPICAL BID 06/01/21 06/01/21 History furosemide 20 mg tablet (Lasix) 20 mg PO DAILY 06/01/21 06/01/21 History metoprolol succinate 50 mg 50 mg PO DAILY 06/01/21 06/01/21 History tablet,extended release 24 hr potassium chloride 10 mEq 10 meq PO BID 06/01/21 06/01/21 History tablet,extended release rosuvastatin 10 mg tablet (Crestor) 10 mg PO Q2D 06/01/21 06/01/21 History sildenafil 100 mg tablet (Viagra) 100 mg PO UD 06/01/21 06/01/21 History testosterone (AndroGel) 1 packet TOPICAL UD 06/01/21 06/01/21 History Allergies Allergy/AdvReac Type Severity Reaction Status Date / Time alprostadil [From [place]] Allergy Unknown Unknown - Unverified 06/01/21 16:55 [facility] niacin Allergy Unknown Unknown - Unverified 06/01/21 16:55 [facility]. pravastatin Allergy Unknown Unknown - Unverified 06/01/21 16:55 [facility]. simvastatin Allergy Unknown Unknown - Unverified 06/01/21 16:55 [facility] Iodinated Contrast Media Allergy Anaphylaxis Verified 01/24/21 02:17 Past Med/Surg History Medical History (Updated 06/01/21 @ 20:22 by Sotero Guerrero MD) Biventricular ICD (implantable cardioverter-defibrillator) in place CAD (coronary artery disease) Hx of ventricular tachycardia Ischemic cardiomyopathy ICD generator change PVD (peripheral vascular disease) Thrombocytopenia Surgical History (Updated 06/01/21 @ 19:08 by Madison Adamson PA-C) H/O cardiac catheterization History of placement of internal cardiac defibrillator Family History (Updated 06/01/21 @ 19:09 by Madison Adamson PA-C) Other Cancer Heart disease Social History Smoking Status: Former smoker Tobacco Type: Cigarettes Hx Alcohol Use: No Hx Substance Use: No Preferred Language: Somali Communication Ability: Effective Beliefs That Will Affect Care: None Current Living Situation: Spouse Feels Safe at Home: Yes Assistive Devices: Denture - Upper and Denture - Lower Review of Systems See HPI for pertinent positives & negatives. and A total of 10 systems reviewed and were otherwise negative Physical Exam Vital Signs Vital Signs - 24 hr 06/01/21 14:58 06/01/21 15:19 06/01/21 16:00 Temperature 36.6 C Temperature Source Temporal Artery Scan Pulse Rate 80 63 Pulse Rate [Apical] 64 60 Pulse Rhythm [Apical] Regular Respiratory Rate 20 16 22 Respiratory Effort / Characteristics Non-Labored Non-Labored Non-Labored Respiratory Depth Normal Normal Normal Blood Pressure 138/77 113/60 Blood Pressure [Right Arm] 138/67 113/60 Blood Pressure Mean 97 77 Blood Pressure Mean [Right Arm] 90 77 Pulse Oximetry 95 98 96 Oxygen Delivery Method Room Air Room Air Room Air Sepsis Recent Fever Within 48 Hours No Sepsis New/Unexplained Change in Mental Status N/A Sepsis Action Taken by Nursing No Action Required 06/01/21 16:30 06/01/21 17:00 06/01/21 17:30 Temperature Temperature Source Pulse Rate 64 60 60 Pulse Rate [Apical] Pulse Rhythm [Apical] Respiratory Rate 21 16 17 Respiratory Effort / Characteristics Respiratory Depth Blood Pressure 127/66 131/68 129/77 Blood Pressure [Right Arm] Blood Pressure Mean 86 89 94 Blood Pressure Mean [Right Arm] Pulse Oximetry 99 99 98 Oxygen Delivery Method Sepsis Recent Fever Within 48 Hours Sepsis New/Unexplained Change in Mental Status Sepsis Action Taken by Nursing 06/01/21 18:00 06/01/21 19:00 Temperature Temperature Source Pulse Rate 62 Pulse Rate [Apical] 67 Pulse Rhythm [Apical] Regular Respiratory Rate 16 16 Respiratory Effort / Characteristics Non-Labored Respiratory Depth Normal Blood Pressure 143/65 H Blood Pressure [Right Arm] 139/76 Blood Pressure Mean 91 Blood Pressure Mean [Right Arm] 97 Pulse Oximetry 98 96 Oxygen Delivery Method Room Air Sepsis Recent Fever Within 48 Hours Sepsis New/Unexplained Change in Mental Status Sepsis Action Taken by Nursing Constitutional: Vital signs reviewed. Pleasant. In no apparent discomfort or distress. Eyes: Pupils are equal round reactive to light. Conjunctiva are noninjected. ENT: Pharynx is clear without erythema or exudate. Mucous membranes are moist. Neck supple without meningeal signs. Respiratory: Clear to auscultation bilaterally. Breath sounds are equal bilaterally. Cardiovascular: Regular rate and rhythm. No rubs or gallops. GI: Soft, nondistended and nontender. Bowel sounds are present. Musculoskeletal: No peripheral edema. No lower extremity tenderness. Pacemaker in the left upper chest wall without signs of infection or swelling. Integumentary: No cyanosis. or jaundice. Neurological: The patient is awake and alert. No focal deficits. Psychiatric: Normal affect. Not anxious appearing. Course Administered Medications Discontinued Medications Amiodarone HCl (Amiodarone 200 Mg Tab) 200 mg PO NOW ONE Stop: 06/01/21 19:18 Last Admin: 06/01/21 19:40 Dose: Not Given Documented by: [id number] Amiodarone HCl (Amiodarone 200 Mg Tab) 200 mg PO NOW ONE Stop: 06/01/21 19:23 Last Admin: 06/01/21 19:38 Dose: 200 mg Documented by: [id number] Lorazepam (Lorazepam 1 Mg Tab) 0.5 mg SL NOW STA Stop: 06/01/21 19:52 Last Admin: 06/01/21 20:33 Dose: 0.5 mg Documented by: [id number] Medical Decision Making Differential Diagnosis Dysrhythmia, ventricular tachycardia, ventricular fibrillation, metabolic derangement, electrolyte abnormality, pacemaker malfunction Medical Records Attestation: I reviewed the patient's medical records. I did perform a limited focused review of portions of the patient's old chart on the electronic medical record. The patient was seen here in January after his defibrillator fired. He was shown to have ventricular tachycardia. He is admitted with a positive troponin and pneumonia. Home Medications Current Medication List: was personally reviewed by me Laboratory Data Attestation: I reviewed the patient's lab results. Result diagrams: 06/01/21 15:32 06/01/21 15:32 Lab Results 06/01/21 06/01/21 06/01/21 Range/Units 15:32 15:32 17:40 WBC 5.99 (4.8-10.8) K/uL RBC 4.62 L (4.7-6.1) M/uL Hgb 13.4 L (14.0-18.0) g/dL Hct 42.5 (42-52) % MCV 92.0 (80-100) fL MCH 29.0 (25-34) pg MCHC 31.5 L (32-36) g/dL RDW Std Deviation 53.3 H (36.4-46.3) fL RDW Coeff of Katalina 15.9 H (11.5-14.5) % Plt Count 148 (130-400) K/uL MPV 10.8 H (7.4-10.4) fL Immature Gran % (Auto) 0.2 % Neut % (Auto) 72.2 % Lymph % (Auto) 15.9 % [place] % (Auto) 9.2 % Eos % (Auto) 2.3 % Baso % (Auto) 0.2 % Neut # (Auto) 4.33 (1.4-6.5) K/uL Lymph # (Auto) 0.95 L (1.2-3.4) K/uL [place] # (Auto) 0.55 (0.11-0.59) K/uL Eos # (Auto) 0.14 (0-0.5) K/uL Baso # (Auto) 0.01 (0-0.2) K/uL Immature Gran # (Auto) 0.01 (0.00-0.02) K/uL Sodium 140 (136-145) mmol/L Potassium 4.0 (3.5-5.1) mmol/L Chloride 107 (98-107) mmol/L Carbon Dioxide 31 (21-32) mmol/L Anion Gap 2.0 L (3-11) BUN 19 H (7-18) mg/dl Creatinine 1.23 (0.6-1.4) mg/dl Est Cr Clr Drug Dosing 39.2 ml/min Est GFR ( Amer) 63.0 ml/min Est GFR (Non-Af Amer) 54.3 ml/min BUN/Creatinine Ratio 15.3 (10-20) Glucose 148 H (70-99) mg/dl Calcium 9.2 (8.5-10.1) mg/dl Magnesium 2.2 (1.8-2.4) mg/dl Total Bilirubin 0.5 (0.2-1) mg/dl AST 11 L (15-37) U/L ALT 11 L (12-78) U/L Alkaline Phosphatase 69 (45-117) U/L Troponin I 0.057 H* (0-0.045) ng/ml Total Protein 8.0 (6.4-8.2) gm/dl Albumin 3.7 (3.4-5.0) gm/dl Globulin 4.3 H (2.5-4.0) gm/dl Albumin/Globulin Ratio 0.9 (0.9-2) COVID-19 Eval Order Covid19 at [facility] SARS-CoV-2 (PCR) (Negative) 06/01/21 Range/Units 17:40 WBC (4.8-10.8) K/uL RBC (4.7-6.1) M/uL Hgb (14.0-18.0) g/dL Hct (42-52) % MCV (80-100) fL MCH (25-34) pg MCHC (32-36) g/dL RDW Std Deviation (36.4-46.3) fL RDW Coeff of Katalina (11.5-14.5) % Plt Count (130-400) K/uL MPV (7.4-10.4) fL Immature Gran % (Auto) % Neut % (Auto) % Lymph % (Auto) % [place] % (Auto) % Eos % (Auto) % Baso % (Auto) % Neut # (Auto) (1.4-6.5) K/uL Lymph # (Auto) (1.2-3.4) K/uL [place] # (Auto) (0.11-0.59) K/uL Eos # (Auto) (0-0.5) K/uL Baso # (Auto) (0-0.2) K/uL Immature Gran # (Auto) (0.00-0.02) K/uL Sodium (136-145) mmol/L Potassium (3.5-5.1) mmol/L Chloride (98-107) mmol/L Carbon Dioxide (21-32) mmol/L Anion Gap (3-11) BUN (7-18) mg/dl Creatinine (0.6-1.4) mg/dl Est Cr Clr Drug Dosing ml/min Est GFR ( Amer) ml/min Est GFR (Non-Af Amer) ml/min BUN/Creatinine Ratio (10-20) Glucose (70-99) mg/dl Calcium (8.5-10.1) mg/dl Magnesium (1.8-2.4) mg/dl Total Bilirubin (0.2-1) mg/dl AST (15-37) U/L ALT (12-78) U/L Alkaline Phosphatase (45-117) U/L Troponin I (0-0.045) ng/ml Total Protein (6.4-8.2) gm/dl Albumin (3.4-5.0) gm/dl Globulin (2.5-4.0) gm/dl Albumin/Globulin Ratio (0.9-2) COVID-19 Eval Order SARS-CoV-2 (PCR) NEGATIVE (Negative) Imaging Data Radiologist's Impression: Chest X-Ray 06/01/21 15:28 SINGLE VIEW CHEST CLINICAL HISTORY: Dysrhythmia. FINDINGS: An AP, portable, upright chest radiograph is compared to study dated 01/24/2021. A 2-lead cardiac AICD is in place. Leads project over the right atrial appendage and the ventricles. These are unchanged in position from previous. The patient is status post midline sternotomy. The heart is enlarged noting atherosclerotic calcification of the thoracic aorta. There are bibasilar airspace opacities, left greater than right. No large pleural effusion or pneum othorax is seen. There are scattered calcified granulomas. The skeletal structures are osteopenic. The bony thorax is grossly intact. IMPRESSION: 1. Cardiomegaly and AICD as above. There is no radiographic evidence of congestive failure. 2. There are bibasilar airspace opacities, left greater than right. This could represent scarring/atelectasis and/or an infectious/inflammatory pneumonitis. Clinical correlation will be required. ACT 112: Negative or not required by law. Electronically signed by: Rip Pack M.D. 06/01/2021 4:[address] 06/01/21 15:31 CT SCAN OF THE BRAIN WITHOUT IV CONTRAST CLINICAL HISTORY: Change in mental status. COMPARISON STUDY: No priors. TECHNIQUE: Unenhanced axial CT scan of the brain is performed from the vertex to the skull base. A dose lowering technique was utilized adhering to the principles of ALARA. CT DOSE: 537.48 mGy.cm FINDINGS: Brain parenchyma: There are age-related involutional changes noting mild subcortical and periventricular microangiopathic change. There is no hemorrhage, mass effect, or evidence of acute territorial ischemia by CT criteria. Acevedo- white matter differentiation is preserved. No extra-axial fluid collection is seen. Ventricles, sulci, cisterns: Prominent secondary to involutional change. Intracranial vasculature: There is atherosclerotic calcification of the cavernous carotid and vertebral arteries. Calvarium: Unremarkable. Sinuses and mastoids: The visualized paranasal sinuses are clear. The mastoid air cells are well pneumatized. Orbits: The bony orbits are grossly intact. There are bilateral ocular lens implants. IMPRESSION: There is no hemorrhage, mass effect, or evidence of acute territorial ischemia by CT criteria. ACT 112: Negative or not required by law. Electronically signed by: Rip Pack M.D. 06/01/2021 3:56 PM ECG Data Attestation: I personally reviewed and interpreted this ECG as follows: Indication: + other (Defibrillator fired) Rate (beats per minute): 79 Rhythm: + other (Atrial paced rhythm) ECG [place]: + Normal ECG Findings: + PVCs (Ventricular paced complexes) and + Other (Prolonged AV c onduction) MDM Narrative I did evaluate the patient as noted above. He is presenting after his defibrillator fired twice since last night. He was asymptomatic prior to this occurring each time. His , however, states that he was somewhat worked up and anxious before the second time. Each time he was on his riding lawnmower. Currently he has no symptoms. He denies any chest discomfort or pain or shortness of breath. He has had no weakness. The pacemaker was interrogated. It demonstrated "2 ICD shocks for V. tach 1 on 05/31 and one on 06/01. Rates 170 to 185 bpm. ATP failed so device proceeded to a 25 J shock. Possible fluid accumulation also noted since brain." IV access was established. I did place an order for continuous cardiac monitoring. The monitor showed a paced rhythm at a rate of 64 bpm. I did order and personally review the patient's 12-lead EKG as described above. He has a paced rhythm. I did order and personally reviewed the images of the patient's chest x-ray as described above. Pacemaker leads are in place. He has what appears to be resolved pneumonia at the bases bilaterally. I did order and review the patient's blood work as noted in the electronic medical record. He has stable anemia with a hemoglobin of 13.4. His white blood cell count is not elevated. Electrolytes are unremarkable including potassium and magnesium. AST and ALT are 11 each. Troponin is slightly elevated 0.057. I did order a CT of the head. I did review the images myself as well as the radiology report as described above. There is no evidence of mass or bleed. I did discuss case with Dr. Villanueva of cardiology. He recommended patient be admitted to the hospital for antiarrhythmic treatment. He asked that the hospitalist call him for further details once they evaluate him. I did discuss this with patient and his and he was agreeable to hospitalization. I did discuss the case with the hospitalist and comp field case manager. Later the patient became somewhat agitated and wanted to go home. He is confused and thought he was here for about a week. I did explain to them that he has only been here for a few hours. His and I were able to talk to him and calm him down and he was agreeable to staying. He later became agitated again and was given Ativan 0.5 mg sublingually. I did inform the hospitalist. Should he try to leave AGAINST MEDICAL ADVICE I do not believe he has capacity to make this decision. He has problems with his thought processes and memories. His states that this confusion has been going on for months. I did relay this to the hospitalist. Impression & Plan Ventricular tachycardia, Biventricular ICD (implantable cardioverter- defibrillator) in place, Defibrillator discharge, Elevated troponin, Chronic confusion Discharge Plan Visit Data Chief Complaint: Cardiac Assessment Stated Complaint: PROBLEMS WITH HIS ICD IMPLANT ED Provider: Sotero Guerrero Discharge Problem: Ventricular tachycardia, Biventricular ICD (implantable cardioverter-d efibrillator) in place, Defibrillator discharge, Elevated troponin, Chronic confusion Forms Stand Alone Forms: My [facility] Prescriptions Prescriptions: No Action glucosamine sulfate [Glucosamine] 500 mg Tablet 500 mg PO DAILY RF: 0 aspirin [Ecotrin Low Strength] 81 mg Tablet,Delayed Release (Dr/Ec) 81 mg PO DAILY RF: 0 coenzyme Q10 [Co Q-10] 100 mg Capsule 100 mg PO DAILY RF: 0 omeprazole magnesium [Prilosec OTC] 20 mg Tablet,Delayed Release (Dr/Ec) 20 mg PO DAILY RF: 0 cyanocobalamin (vitamin B-12) [Vitamin B-12] 500 mcg Lozenge 1,000 mcg PO DAILY RF: 0 cholecalciferol (vitamin D3) [Vitamin D3] 1,000 unit Tablet,Chewable 1,000 unit PO DAILY RF: 0 escitalopram oxalate [Lexapro] 5 mg tablet 5 mg PO DAILY Qty: 30 RF: 0 potassium chloride 10 mEq tablet extended release 10 meq PO BID RF: 0 furosemide [Lasix] 20 mg tablet 20 mg PO DAILY RF: 0 albuterol sulfate 90 mcg/actuation HFA aerosol inhaler 1 puff INHALATION QID PRN (Reason: Shortness Of Breath) RF: 0 clotrimazole 1 % Cream 1 applic TOPICAL BID RF: 0 rosuvastatin [Crestor] 10 mg tablet 10 mg PO Q2D RF: 0 sildenafil [Viagra] 100 mg tablet 100 mg PO UD RF: 0 testosterone [AndroGel] 1 % (25 mg/2.5gram) gel in packet 1 packet topical UD RF: 0 metoprolol succinate 50 mg tablet extended release 24 hr 50 mg PO DAILY RF: 0 Referrals Referrals: PCP,NO [Physician] -
[2021-06-01 15:40] LABS: Basophils # (auto) 0.01 K/uL (0-0.2); Basophils % (auto) 0.2 %; Eosinophils # (auto) 0.14 K/uL (0-0.5); Eosinophils % (auto) 2.3 %; Hematocrit (blood only) 42.5 % (42-52); Hemoglobin 13.4 g/dL (14.0-18.0); Immature Granulocytes # (auto) 0.01 K/uL (0.00-0.02); Immature Granulocytes % (auto) 0.2 %; Lymphocytes # (auto) 0.95 K/uL (1.2-3.4); Lymphocytes % (auto) 15.9 %; Mean Corpuscular Hgb Conc 31.5 g/dL (32-36); Mean Platelet Volume 10.8 fL (7.4-10.4); Monocytes # (auto) 0.55 K/uL (0.11-0.59); Monocytes % (auto) 9.2 %; Neutrophils # (auto) 4.33 K/uL (1.4-6.5); Neutrophils % (auto) 72.2 %; Platelet Count 148 K/uL (130-400); RDW Coefficient of Variation 15.9 % (11.5-14.5); RDW Standard Deviation 53.3 fL (36.4-46.3); Red Blood Count 4.62 M/uL (4.7-6.1); White Blood Count 5.99 K/uL (4.8-10.8)
[2021-06-01 15:57] LABS: Albumin Level 3.7 gm/dl (3.4-5.0); BUN Creatinine Ratio 15.3 (10-20); Calcium 9.2 mg/dl (8.5-10.1); Creatinine Clr Calc Pharmacy 39.2 ml/min; Est GFR (Non-African American) 54.3 ml/min; Magnesium 2.2 mg/dl (1.8-2.4)
--- NOTE | 2021-06-01 15:57 | CT Scan Report ---
CT SCAN OF THE BRAIN WITHOUT IV CONTRAST CLINICAL HISTORY: Change in mental status. COMPARISON STUDY: No priors. TECHNIQUE: Unenhanced axial CT scan of the brain is performed from the vertex to the skull base. A do se lowering technique was utilized adhering to the principles of ALARA. CT DOSE: 537.48 mGy.cm FINDINGS: Brain parenchyma: There are age-related involutional changes noting mild subcortical and periventric ular microangiopathic change. There is no hemorrhage, mass effect, or evidence of acute territorial i schemia by CT criteria. Acevedo-white matter differentiation is preserved. No extra-axial fluid collecti on is seen. Ventricles, sulci, cisterns: Prominent secondary to involutional change. Intracranial vasculature: There is atherosclerotic calcification of the cavernous carotid and vertebr al arteries. Calvarium: Unremarkable. Sinuses and mastoids: The visualized paranasal sinuses are clear. The mastoid air cells are well pneu matized. Orbits: The bony orbits are grossly intact. There are bilateral ocular lens implants. IMPRESSION: There is no hemorrhage, mass effect, or evidence of acute territorial ischemia by CT vanesat reid. ACT 112: Negative or not required by law. Electronically signed by: Rip Pack M.D. 06/01/2021 3:56 PM
[2021-06-01 16:15] LABS: Albumin Globulin Ratio 0.9 (0.9-2); Bilirubin,Total 0.5 mg/dl (0.2-1); Globulin 4.3 gm/dl (2.5-4.0); Troponin I 0.057 ng/ml (0-0.045)
--- NOTE | 2021-06-01 17:00 | XRay Report ---
SINGLE VIEW CHEST CLINICAL HISTORY: Dysrhythmia. FINDINGS: An AP, portable, upright chest radiograph is compared to study dated 01/24/2021. A 2-lead ca rdiac AICD is in place. Leads project over the right atrial appendage and the ventricles. These are u nchanged in position from previous. The patient is status post midline sternotomy. The heart is enlar ged noting atherosclerotic calcification of the thoracic aorta. There are bibasilar airspace opacitie s, left greater than right. No large pleural effusion or pneumothorax is seen. There are scattered ca lcified granulomas. The skeletal structures are osteopenic. The bony thorax is grossly intact. IMPRESSION: 1. Cardiomegaly and AICD as above. There is no radiographic evidence of congestive failure. 2. There are bibasilar airspace opacities, left greater than right. This could represent scarring/ate lectasis and/or an infectious/inflammatory pneumonitis. Clinical correlation will be required. ACT 112: Negative or not required by law. Electronically signed by: Rip Pack M.D. 06/01/2021 4:59 PM
[2021-06-01] MEDS ORDERED: AMIODARONE 200 MG TAB PO ONE ×2 (19:17→19:22)
[2021-06-01] MEDS ORDERED: LORazepam 1 MG TAB SL STA (19:51)
--- NOTE | 2021-06-01 20:28 | History & Physical Report ---
Date of Service June 01, 2021 Assessment & Plan (1) Ventricular tachycardia: Plan: Paroxysmal VT sp ICD shock 2 ICD shocks verified by pacemaker interrogation. Rates 170 to 185 bpm as per report. Troponin elevation secondary to above chronic systolic heart failure secondary to ischemic cardiomyopathy, euvolemic CAD status post CABG/PVD as per records hypertension, stable hyperlipidemia on statin Rx COPD, stable hx PE status post Eliquis mood disorder, at baseline Possible dementia as per records Episodic thrombocytopenia past tobacco abuse PCU Cardiology consult Re: Recurrent VT ER provider already in touch with Dr. Villanueva who recommends initiation of Amio darone 200 mg p.o. BID starting tonight. Follow troponin Delirium precautions DVT prophylaxis SCDs RE thrombocytopenia Full code Patient requesting updates from providers. Ms. Kelley Kim, contact #[phone]. Text document was generated using [employer] voice recognition software. It may contain grammatical or spelling errors. Kindly contact undersigned for clarification of any documentation item in question. History of Present Illness Chief Complaint: ICD shocks Primary Care Provider: Kali Kiran MD History obtained from patient, family, and records. Patient is a fair historian. Medical history significant for chronic systolic heart failure secondary to ischemic cardiomyopathy (EF 20-24%, TTE 2019), CAD status post CABG, PVD as per records, paroxysmal VT status post ICD, hypertension, hyperlipidemia, COPD as per records, hx PE sp Eliquis, mood disorder, episodic thrombocytopenia, possible dementia as per records, past tobacco abuse. Subsequent confinement at [facility] for pneumonia and pulmonary embolism status post completion of Eliquis Rx. Last confinement December 2020 for defibrillator discharge. ICD interrogation showed episodes of VT and VF. Beta-indy dose increased on discharge. Last night patient felt his defibrillator fired twice while mowing the grass riding mower. Transient chest pain. No dizziness or syncope. On-call advisory internship recommended ER evaluation which patient declined. Patient instructed to have device interrogated at [facility] pacemaker clinic on Thursday along with outpatient blood work. ICD shock recurrence when patient got back on the mower this afternoon. Patient brought to the ER for evaluation. 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 niacin Allergy Unknown Unknown - Unverified 06/01/21 16:55 [facility]. pravastatin Allergy Unknown Unknown - Unverified 06/01/21 16:55 [facility]. simvastatin Allergy Unknown Unknown - Unverified 06/01/21 16:55 [facility] Iodinated Contrast Media Allergy Anaphylaxis Verified 01/24/21 02:17 Home Medications Medication Instructions Recorded Confirmed Type aspirin 81 mg tablet,delayed 81 mg PO DAILY 10/18/19 06/01/21 History release (Ecotrin Low Strength) cholecalciferol (vitamin D3) 25 1,000 unit PO DAILY 10/18/19 06/01/21 History mcg (1,000 unit) chewable tablet (Vitamin D3) coenzyme Q10 100 mg capsule (Co 100 mg PO DAILY 10/18/19 06/01/21 History Q-10) cyanocobalamin (vitamin B-12) 500 1,000 mcg PO DAILY 10/18/19 06/01/21 History mcg lozenges (Vitamin B-12) glucosamine sulfate 500 mg tablet 500 mg PO DAILY 10/18/19 06/01/21 History (Glucosamine) omeprazole magnesium 20 mg 20 mg PO DAILY 10/18/19 06/01/21 History tablet,delayed release (Prilosec OTC) escitalopram oxalate 5 mg tablet 5 mg PO DAILY #30 tab 01/25/21 06/01/21 Rx (Lexapro) albuterol sulfate 90 mcg/actuation 1 puff INHALATION QID PRN 06/01/21 06/01/21 History aerosol inhaler clotrimazole 1 % topical cream 1 applic TOPICAL BID 06/01/21 06/01/21 History furosemide 20 mg tablet (Lasix) 20 mg PO DAILY 06/01/21 06/01/21 History metoprolol succinate 50 mg 50 mg PO DAILY 06/01/21 06/01/21 History tablet,extended release 24 hr potassium chloride 10 mEq 10 meq PO BID 06/01/21 06/01/21 History tablet,extended release rosuvastatin 10 mg tablet (Crestor) 10 mg PO Q2D 06/01/21 06/01/21 History sildenafil 100 mg tablet (Viagra) 100 mg PO UD 06/01/21 06/01/21 History testosterone (AndroGel) 1 packet TOPICAL UD 06/01/21 06/01/21 History Past Med/Surg History Medical History Biventricular ICD (implantable cardioverter-defibrillator) in place CAD (coronary artery disease) Hx of ventricular tachycardia Ischemic cardiomyopathy ICD generator change PVD (peripheral vascular disease) Thrombocytopenia Surgical History H/O cardiac catheterization History of placement of internal cardiac defibrillator Family History Other Cancer Heart disease Social History Smoking Status: Never smoker Tobacco Type: Cigarettes Hx Alcohol Use: No Hx Substance Use: No Preferred Language: Amharic Communication Ability: Effective Beliefs That Will Affect Care: None Current Living Situation: Spouse Other Information That Helps Us Care for You: No Feels Safe at Home: Yes Safety Concerns: Feels Safe At This Time Assistive Devices: Glasses Review of Systems Review of Systems: As per HPI, all 10 systems reviewed, all other ROS negative Physical Exam Physical Exam: GENERAL: Slightly anxious, pleasant, oriented to year, no respiratory distress SKIN: Normal color, warm HEENT: Alopecia, pink palpebral conjunctivae, no ptosis, dry buccal mucosa NECK : Supple, no tenderness CHEST : Decreased breath sounds, no tenderness HEART : diminished S1-S2, no obvious murmurs ABDOMEN: Some distention, nontender EXTREMITIES : No LE swelling/tenderness, no other conspicuous deformities noted NEUROLOGIC : Coherent, oriented to year, no facial asymmetry, no other gross focality Results & Data Results & Data ([facility]) Vital Signs (Past 12 Hours) Vital Signs Temp Pulse Pulse Resp BP BP Pulse Ox 06/01/21 19:00 67 16 139/76 96 06/01/21 18:00 62 16 143/65 H 98 06/01/21 17:30 60 17 129/77 98 06/01/21 17:00 60 16 131/68 99 06/01/21 16:30 64 21 127/66 99 06/01/21 16:00 63 60 22 113/60 113/60 96 06/01/21 15:19 64 16 138/67 98 06/01/21 14:58 36.6 C 80 20 138/77 95 Laboratory Results Laboratory Results WBC 5.99 K/uL (4.8-10.8) 06/01/21 15:32 RBC 4.62 M/uL (4.7-6.1) L 06/01/21 15:32 Hgb 13.4 g/dL (14.0-18.0) L 06/01/21 15:32 Hct 42.5 % (42-52) 06/01/21 15:32 MCV 92.0 fL (80-100) 06/01/21 15:32 MCH 29.0 pg (25-34) 06/01/21 15:32 MCHC 31.5 g/dL (32-36) L 06/01/21 15:32 RDW Std Deviation 53.3 fL (36.4-46.3) H 06/01/21 15:32 RDW Coeff of Katalina 15.9 % (11.5-14.5) H 06/01/21 15:32 Plt Count 148 K/uL (130-400) 06/01/21 15:32 MPV 10.8 fL (7.4-10.4) H 06/01/21 15:32 Immature Gran % (Auto) 0.2 % 06/01/21 15:32 Neut % (Auto) 72.2 % 06/01/21 15:32 Lymph % (Auto) 15.9 % 06/01/21 15:32 [place] % (Auto) 9.2 % 06/01/21 15:32 Eos % (Auto) 2.3 % 06/01/21 15:32 Baso % (Auto) 0.2 % 06/01/21 15:32 Neut # (Auto) 4.33 K/uL (1.4-6.5) 06/01/21 15:32 Lymph # (Auto) 0.95 K/uL (1.2-3.4) L 06/01/21 15:32 [place] # (Auto) 0.55 K/uL (0.11-0.59) 06/01/21 15:32 Eos # (Auto) 0.14 K/uL (0-0.5) 06/01/21 15:32 Baso # (Auto) 0.01 K/uL (0-0.2) 06/01/21 15:32 Immature Gran # (Auto) 0.01 K/uL (0.00-0.02) 06/01/21 15:32 Sodium 140 mmol/L (136-145) 06/01/21 15:32 Potassium 4.0 mmol/L (3.5-5.1) 06/01/21 15:32 Chloride 107 mmol/L (98-107) 06/01/21 15:32 Carbon Dioxide 31 mmol/L (21-32) 06/01/21 15:32 Anion Gap 2.0 (3-11) L 06/01/21 15:32 BUN 19 mg/dl (7-18) H 06/01/21 15:32 Creatinine 1.23 mg/dl (0.6-1.4) 06/01/21 15:32 Est Cr Clr Drug Dosing 39.2 ml/min 06/01/21 15:32 Est GFR ( Amer) 63.0 ml/min 06/01/21 15:32 Est GFR (Non-Af Amer) 54.3 ml/min 06/01/21 15:32 BUN/Creatinine Ratio 15.3 (10-20) 06/01/21 15:32 Glucose 148 mg/dl (70-99) H 06/01/21 15:32 Calcium 9.2 mg/dl (8.5-10.1) 06/01/21 15:32 Magnesium 2.2 mg/dl (1.8-2.4) 06/01/21 15:32 Total Bilirubin 0.5 mg/dl (0.2-1) 06/01/21 15:32 AST 11 U/L (15-37) L 06/01/21 15:32 ALT 11 U/L (12-78) L 06/01/21 15:32 Alkaline Phosphatase 69 U/L (45-117) 06/01/21 15:32 Troponin I 0.057 ng/ml (0-0.045) H* 06/01/21 15:32 Total Protein 8.0 gm/dl (6.4-8.2) 06/01/21 15:32 Albumin 3.7 gm/dl (3.4-5.0) 06/01/21 15:32 Globulin 4.3 gm/dl (2.5-4.0) H 06/01/21 15:32 Albumin/Globulin Ratio 0.9 (0.9-2) 06/01/21 15:32 COVID-19 Eval Order Covid19 at [facility] 06/01/21 17:40 SARS-CoV-2 (PCR) NEGATIVE (Negative) 06/01/21 17:40 Impressions Chest X-Ray 06/01/21 15:28 SINGLE VIEW CHEST CLINICAL HISTORY: Dysrhythmia. FINDINGS: An AP, portable, upright chest radiograph is compared to study dated 01/24/2021. A 2-lead cardiac AICD is in place. Leads project over the right atrial appendage and the ventricles. These are unchanged in position from previous. The patient is status post midline sternotomy. The heart is enlarged noting atherosclerotic calcification of the thoracic aorta. There are bibasilar airspace opacities, left greater than right. No large pleural effusion or pneumothorax is seen. There are scattered calcified granulomas. The skeletal structures are osteopenic. The bony thorax is grossly intact. IMPRESSION: 1. Cardiomegaly and AICD as above. There is no radiographic evidence of congestive failure. 2. There are bibasilar airspace opacities, left greater than right. This could represent scarring/atelectasis and/or an infectious/inflammatory pneumonitis. C linical correlation will be required. ACT 112: Negative or not required by law. Electronically signed by: Rip Pack M.D. 06/01/2021 4:[address] 06/01/21 15:31 CT SCAN OF THE BRAIN WITHOUT IV CONTRAST CLINICAL HISTORY: Change in mental status. COMPARISON STUDY: No priors. TECHNIQUE: Unenhanced axial CT scan of the brain is performed from the vertex to the skull base. A dose lowering technique was utilized adhering to the principles of ALARA. CT DOSE: 537.48 mGy.cm FINDINGS: Brain parenchyma: There are age-related involutional changes noting mild subcortical and periventricular microangiopathic change. There is no hemorrhage, mass effect, or evidence of acute territorial ischemia by CT criteria. Acevedo- white matter differentiation is preserved. No extra-axial fluid collection is seen. Ventricles, sulci, cisterns: Prominent secondary to involutional change. Intracranial vasculature: There is atherosclerotic calcification of the cavernous carotid and vertebral arteries. Calvarium: Unremarkable. Sinuses and mastoids: The visualized paranasal sinuses are clear. The mastoid air cells are well pneumatized. Orbits: The bony orbits are grossly intact. There are bilateral ocular lens implants. IMPRESSION: There is no hemorrhage, mass effect, or evidence of acute territorial ischemia by CT criteria. ACT 112: Negative or not required by law. Electronically signed by: Rip Pack M.D. 06/01/2021 3:56 PM Diagnostic Findings EKG as per my interpretation rate 70, paced rhythm
[2021-06-01] MEDS ORDERED: OLANZapine 10 MG/2.1 ML SDV IM PRN (21:32)
[2021-06-01] MEDS ORDERED: ACETAMINOPHEN 325 MG TAB PO PRN (21:32)
[2021-06-01] MEDS ORDERED: ALBUMIN 25% 12.5 GM/50 ML VIAL IV ONE (22:00)
[2021-06-01] MEDS: POTASSIUM CHLORIDE 10 MEQ TABCR PO SCH (22:31)
[2021-06-02 05:02] LABS: Mean Corpuscular Hgb Conc 31.8 g/dL (32-36); Mean Platelet Volume 10.4 fL (7.4-10.4); Platelet Count 127 K/uL (130-400)
[2021-06-02 05:12] LABS: Partial Thromboplastin Ratio 1.2; Partial Thromboplastin Time 31.2 Seconds (21.0-31.0)
[2021-06-02 05:30] LABS: Basophils # (auto) 0.01 K/uL (0-0.2); Basophils % (auto) 0.2 %; Eosinophils # (auto) 0.12 K/uL (0-0.5); Eosinophils % (auto) 2.1 %; Hemoglobin 12.1 g/dL (14.0-18.0); Immature Granulocytes # (auto) 0.01 K/uL (0.00-0.02); Immature Granulocytes % (auto) 0.2 %; Lymphocytes # (auto) 1.24 K/uL (1.2-3.4); Lymphocytes % (auto) 22.1 %; Mean Corpuscular Hemoglobin 28.7 pg (25-34); Mean Corpuscular Volume 90.3 fL (80-100); Monocytes # (auto) 0.66 K/uL (0.11-0.59); Monocytes % (auto) 11.8 %; Neutrophils # (auto) 3.57 K/uL (1.4-6.5); Neutrophils % (auto) 63.6 %; RDW Standard Deviation 52.7 fL (36.4-46.3); Red Blood Count 4.21 M/uL (4.7-6.1); White Blood Count 5.61 K/uL (4.8-10.8)
[2021-06-02 05:36] LABS: BUN Creatinine Ratio 19.7 (10-20); Calcium 9.1 mg/dl (8.5-10.1); Creatinine Clr Calc Pharmacy 49.5 ml/min; Est GFR (African American) 83.9 ml/min; Est GFR (Non-African American) 72.4 ml/min; Magnesium 2.1 mg/dl (1.8-2.4); Potassium 3.8 mmol/L (3.5-5.1)
[2021-06-02 05:47] LABS: Troponin I 0.048 ng/ml (0-0.045)
[2021-06-02] MEDS: CYANOCOBALAMIN 500 MCG TABLET (VITAMIN B-12) PO SCH (08:34)
[2021-06-02] MEDS: PANTOprazole 40 MG TAB PO SCH (08:34)
[2021-06-02] MEDS: METOPROLOL SUCC 50MG EXT REL TAB PO SCH (08:35)
[2021-06-02] MEDS: AMIODARONE 200 MG TAB PO SCH ×2 (08:35→16:30)
[2021-06-02] MEDS: ASPIRIN 81 MG ECTAB PO SCH (08:35)
[2021-06-02] MEDS: FUROSEMIDE 20 MG TAB PO SCH (08:35)
[2021-06-02] MEDS: POTASSIUM CHLORIDE 10 MEQ TABCR PO SCH ×2 (08:36→20:30)
[2021-06-02] MEDS ORDERED: ESCITALOPRAM OXALATE 10 MG TAB PO SCH (09:00)
--- NOTE | 2021-06-02 09:35 | Electrocardiogram Report ---
Test Reason : Blood Pressure : / mmHG Vent. Rate : 079 BPM Atrial Rate : 079 BPM P-R Int : 402 ms QRS Dur : 118 ms QT Int : 398 ms P-R-T Axes : 000 -05 137 degrees QTc Int : 456 ms Atrial-paced rhythm with prolonged AV conduction with occasional ventricular-paced complexes Possible Old Inferior infarct Abnormal ECG When compared with ECG of 24-JAN-2021 00:20, No significant change Confirmed by Reji Gutiérrez ([id number]) on 06/02/2021 9:35:32 AM Referred By: ED Confirmed By:Reji Gutiérrez
--- NOTE | 2021-06-02 12:06 | Cardiology Consultation ---
Date of Consultation June 02, 2021 Assessment & Plan (1) Ventricular tachycardia: (2) Defibrillator discharge: (3) Ischemic cardiomyopathy: (4) Chronic confusion: (5) Biventricular ICD (implantable cardioverter-defibrillator) in place: Patient is an 80-year-old male with known ischemic cardiomyopathy with implanted biventricular defibrillator in place. He has had 2 device discharges in the last 2 days which appear appropriate by initial evaluation. Patient's had difficulties with past defibrillator discharge. Device to be formally interrogated in a.m. Antiarrhythmic therapy has been initiated with amiodarone 200 mg twice per day with slow load given past history of iodine contrast allergy. Since admission appears to be tolerating will anticipate inpatient follow for at least an additional 24 to 48 hours Echocardiogram will be repeated given possible history of past apical thrombus and recent discontinuation of anticoagulation We will hold Lexapro with noting increasing confusion and dementia at home this medication added for anxiety and depression approximately 2 months ago. History of Present Illness Reason for Consultation: Defibrillator associated shock Requesting Physician: Dr. Grey Attending Physician: Yohana Grey, History of Present Illness Patient is a very complex 80-year-old male ongoing medical and surgical history is including 1. ASCVD. Inferior wall myocardial infarction in 1994 Status post CABG x5 in 1994, at [facility]. SVG to the first and second diagonals. SVG to the OM and PDA. EF 40% at that time. Severe ischemic cardiomyopathy. Most recent EF < 20% (December 2018) 2. Nonsustained ventricular tachycardia, monomorphic ventricular tachycardia via EP study in 2000 Status post post single chamber Medtronic ICD imp lantation ICD discharge in 2004, successful shock for rapid ventricular tachycardia with a cycle length of 230 to 240 ms. Upgrade to a dual chamber ICD on October 18, 2019. Medtronic Evera MRI XT US 3. Peripheral vascular disease 4. Bilateral internal carotid artery disease 5. Hypertension 6. Dyslipidemia 7. Emphysema 8. Pulmonary embolism, March 2021 anticoagulation discontinued 4 days ago Patient presented to the emergency room yesterday having noted defibrillator firing day prior while riding [employer]. No associated chest pain shortness of breath syncope or near syncope no sensed tachypalpitations. Patient declined ER evaluation at that time. He represented after similar event day following while riding lawnmower once again defibrillator fire. No associated syncope or near syncope. Pushed his lawnmower into his shed. No fevers chills unexplained infections. No bleeding difficulties. Mild low- grade cough without production. No edema no acute weight gain. Taking medications as prescribed concern for possible progression in dementia Recent history is notable for reduction in metoprolol dosing 1 month ago. Discontinuation of anticoagulation following pulmonary embolus approximately 4 days ago. Lexapro added to regimen approximately 2 months ago for anxiety/depression Patient currently comfortable. No arrhythmias overnight. No recent bleeding difficulties. Appetite is good. No difficulty taking his medications. Patient begun on amiodarone last evening. No rash or allergic complaints Allergies Allergy/AdvReac Type Severity Reaction Status Date / Time alprostadil [From [place]] Allergy Unknown Unknown - Unverified 06/01/21 16:55 [facility] niacin Allergy Unknown Unknown - Unverified 06/01/21 16:55 [facility] on [facility] list. pravastatin Allergy Unknown Unknown - Unverified 06/01/21 16:55 [facility] on [facility] list. simvastatin Allergy Unknown Unknown - Unverified 06/01/21 16:55 [facility] on [facility] list. Iodinated Contrast Media Allergy Anaphylaxis Verified 01/24/21 02:17 Home Medications Medication Instructions Recorded Confirmed Type aspirin 81 mg tablet,delayed 81 mg PO DAILY 10/18/19 06/01/21 History release (Ecotrin Low Strength) cholecalciferol (vitamin D3) 25 1,000 unit PO DAILY 10/18/19 06/01/21 History mcg (1,000 unit) chewable tablet (Vitamin D3) coenzyme Q10 100 mg capsule (Co 100 mg PO DAILY 10/18/19 06/01/21 History Q-10) cyanocobalamin (vitamin B-12) 500 1,000 mcg PO DAILY 10/18/19 06/01/21 History mcg lozenges (Vitamin B-12) glucosamine sulfate 500 mg tablet 500 mg PO DAILY 10/18/19 06/01/21 History (Glucosamine) omeprazole magnesium 20 mg 20 mg PO DAILY 10/18/19 06/01/21 History tablet,delayed release (Prilosec OTC) escitalopram oxalate 5 mg tablet 5 mg PO DAILY #30 tab 01/25/21 06/01/21 Rx (Lexapro) albuterol sulfate 90 mcg/actuation 1 puff INHALATION QID PRN 06/01/21 06/01/21 History aerosol inhaler clotrimazole 1 % topical cream 1 applic TOPICAL BID 06/01/21 06/01/21 History furosemide 20 mg tablet (Lasix) 20 mg PO DAILY 06/01/21 06/01/21 History metoprolol succinate 50 mg 50 mg PO DAILY 06/01/21 06/01/21 History tablet,extended release 24 hr potassium chloride 10 mEq 10 meq PO BID 06/01/21 06/01/21 History tablet,extended release rosuvastatin 10 mg tablet (Crestor) 10 mg PO Q2D 06/01/21 06/01/21 History sildenafil 100 mg tablet (Viagra) 100 mg PO UD 06/01/21 06/01/21 History testosterone (AndroGel) 1 packet TOPICAL UD 06/01/21 06/01/21 History Patient History Medical History Biventricular ICD (implantable cardioverter-defibrillator) in place CAD (coronary artery disease) Hx of ventricular tachycardia Ischemic cardiomyopathy ICD generator change PVD (peripheral vascular disease) Thrombocytopenia Surgical History H/O cardiac catheterization History of placement of internal cardiac defibrillator Family History Other Cancer Heart disease Social History Smoking Status: Never smoker Tobacco Type: Cigarettes Hx Alcohol Use: No Hx Substance Use: No Preferred Language: Uzbek Communication Ability: Effective Beliefs That Will Affect Care: None Current Living Situation: Spouse Other Information That Helps Us Care for You: No Feels Safe at Home: Yes Safety Concerns: Feels Safe At This Time Assistive Devices: Glasses Review of Systems Review of Systems: All systems reviewed & are unremarkable except as noted in HPI & below Physical Exam Constitutional: + thin; no acute distress Eyes: PERRL, conjunctivae normal, anicteric sclerae ENMT: external ear and nose normal, oropharynx normal Neck: trachea midline, no thyromegaly Respiratory: Auscultation: + diminished lung sounds (Left base) Cardiovascular: Rate/Rhythm: regular rate and regular rhythm Heart Sounds: normal S1, normal S2 and + murmur (Grade 1/6 systolic murmur at apex); no gallop Palpation: normal PMI Vessels: normal carotid upstroke and radial pulses present; no JVD and no carotid bruit Extremities: no edema Chest (Breasts): Chest: + pacemaker Gastrointestinal (Abdomen): normal bowel sounds, soft, nontender, no hepatosplenomegaly Musculoskeletal: no cyanosis or clubbing, extremities motor strength 5/5 Skin: no rashes, warm and dry Neurologic: PERRL, EOMI, accommodation nl, no face palsy, no dysarthria Psychiatric: Orientation: alert and cooperative Results & Data ([facility]) Vital Signs (Past 12 Hours) Vital Signs Temp Pulse Resp BP Pulse Ox 06/02/21 10:42 36.6 C 64 22 116/56 L 23 L 06/02/21 07:30 36.7 C 70 16 116/51 L 93 06/02/21 03:11 36.5 C 62 16 125/56 L 95 06/02/21 00:09 36.7 C 65 16 130/67 94 Laboratory Results Laboratory Results - last 24 hr 06/01/21 06/01/21 06/01/21 15:32 15:32 17:40 WBC 5.99 RBC 4.62 L Hgb 13.4 L Hct 42.5 MCV 92.0 MCH 29.0 MCHC 31.5 L RDW Std Deviation 53.3 H RDW Coeff of Katalina 15.9 H Plt Count 148 MPV 10.8 H Immature Gran % (Auto) 0.2 Neut % (Auto) 72.2 Lymph % (Auto) 15.9 [place] % (Auto) 9.2 Eos % (Auto) 2.3 Baso % (Auto) 0.2 Neut # (Auto) 4.33 Lymph # (Auto) 0.95 L [place] # (Auto) 0.55 Eos # (Auto) 0.14 Baso # (Auto) 0.01 Immature Gran # (Auto) 0.01 APTT PTT Ratio Sodium 140 Potassium 4.0 Chloride 107 Carbon Dioxide 31 Anion Gap 2.0 L BUN 19 H Creatinine 1.23 Est Cr Clr Drug Dosing 39.2 Est GFR ( Amer) 63.0 Est GFR (Non-Af Amer) 54.3 BUN/Creatinine Ratio 15.3 Glucose 148 H Calcium 9.2 Magnesium 2.2 Total Bilirubin 0.5 AST 11 L ALT 11 L Alkaline Phosphatase 69 Troponin I 0.057 H* Total Protein 8.0 Albumin 3.7 Globulin 4.3 H Albumin/Globulin Ratio 0.9 COVID-19 Eval Order Covid19 at [facility] SARS-CoV-2 (PCR) 06/01/21 06/02/21 06/02/21 17:40 04:52 04:52 WBC 5.61 RBC 4.21 L Hgb 12.1 L Hct 38.0 L MCV 90.3 MCH 28.7 MCHC 31.8 L RDW Std Deviation 52.7 H RDW Coeff of Katalina 16.0 H Plt Count 127 L MPV 10.4 Immature Gran % (Auto) 0.2 Neut % (Auto) 63.6 Lymph % (Auto) 22.1 [place] % (Auto) 11.8 Eos % (Auto) 2.1 Baso % (Auto) 0.2 Neut # (Auto) 3.57 Lymph # (Auto) 1.24 [place] # (Auto) 0.66 H Eos # (Auto) 0.12 Baso # (Auto) 0.01 Immature Gran # (Auto) 0.01 APTT PTT Ratio Sodium 140 Potassium 3.8 Chloride 108 H Carbon Dioxide 29 Anion Gap 3.0 BUN 19 H Creatinine 0.97 Est Cr Clr Drug Dosing 49.5 Est GFR ( Amer) 83.9 Est GFR (Non-Af Amer) 72.4 BUN/Creatinine Ratio 19.7 Glucose 106 H Calcium 9.1 Magnesium 2.1 Total Bilirubin AST ALT Alkaline Phosphatase Troponin I 0.048 H* Total Protein Albumin Globulin Albumin/Globulin Ratio COVID-19 Eval Order SARS-CoV-2 (PCR) NEGATIVE 06/02/21 04:52 WBC RBC Hgb Hct MCV MCH MCHC RDW Std Deviation RDW Coeff of Katalina Plt Count MPV Immature Gran % (Auto) Neut % (Auto) Lymph % (Auto) [place] % (Auto) Eos % (Auto) Baso % (Auto) Neut # (Auto) Lymph # (Auto) [place] # (Auto) Eos # (Auto) Baso # (Auto) Immature Gran # (Auto) APTT 31.2 H PTT Ratio 1.2 Sodium Potassium Chloride Carbon Dioxide Anion Gap BUN Creatinine Est Cr Clr Drug Dosing Est GFR ( Amer) Est GFR (Non-Af Amer) BUN/Creatinine Ratio Glucose Calcium Magnesium Total Bilirubin AST ALT Alkaline Phosphatase Troponin I Total Protein Albumin Globulin Albumin/Globulin Ratio COVID-19 Eval Order SARS-CoV-2 (PCR)
--- NOTE | 2021-06-02 21:24 | Hospitalist Progress Note ---
Date of Service June 02, 2021 Assessment & Plan (1) Ventricular tachycardia: Plan: Paroxysmal ventricular tachycardia status post ICD shock x2 verified by pacemaker interrogation. He is doing well this afternoon and is denying any symptoms. Started on amiodarone per cardiology and will be monitored on telemetry over the next 1 to 2 days (2) Defibrillator discharge: Plan: Plan as above (3) Ischemic cardiomyopathy: Plan: Repeat echocardiogram. Patient has a history of past apical thrombus and recent discontinuation of anticoagulation. Continue guideline directed medical therapy with Toprol-XL 50 mg daily, Crestor 10 mg every 2 days. Continue aspirin 81 mg p.o. daily (4) Depression: Plan: Lexapro recently started and currently being held after increased confusion noted per records. (5) DVT prophylaxis: Plan: SCDs/ambulation Full code Disposition-pending cardiology clearance. Yohana Grey DO [facility] hospitalist Admission and Anticipated Discharge Date Admission Date: June 01, 2021 Subjective 80-year-old man with ICD admitted after shock while riding his lawnmower/tractor The patient denies any chest pain, shortness of breath or other issues today. He is concerned about not being able to ride his tractor again. He repeats stories Review of Systems Review of Systems: All systems were reviewed and negative except as indicated in HPI above. Physical Exam Physical Exam: CONSTITUTIONAL: WNWD, vitals as above, generally well- appearing EYES: normal conjunctivae, no scleral icterus ENT: external ear and nose normal, MMM RESPIRATORY: clear to auscultation bilaterally, no crackles, rales or wheezes, normal respiratory effort CARDIOVASCULAR: regular rate and rhythm, S1 and 2 heard without murmurs, gallops or rubs, no JVD, no peripheral edema GASTROINTESTINAL: soft, nontender, ND MUSCULOSKELETAL: strength 5/5 throughout, head is normocephalic and atraumatic SKIN: warm and dry NEUROLOGIC: CN 2-12 grossly intact, no sensory deficit, normal cognition, normal speech PSYCHIATRIC: alert cooperative and oriented to person, place and time. Results & Data Results & Data ([facility]) Vital Signs (Past 12 Hours) Vital Signs Temp Pulse Pulse Resp BP Pulse Ox 06/02/21 20:00 36.5 C 60 20 142/67 H 96 06/02/21 15:01 36.6 C 60 19 130/53 L 93 06/02/21 10:42 36.6 C 64 22 116/56 L 23 L Laboratory Results Short CBC 06/02/21 Range/Units 04:52 WBC 5.61 (4.8-10.8) K/uL Hgb 12.1 L (14.0-18.0) g/dL Hct 38.0 L (42-52) % Plt Count 127 L (130-400) K/uL BMP 06/02/21 04:52 Sodium 140 Potassium 3.8 Chloride 108 H Carbon Dioxide 29 BUN 19 H Creatinine 0.97 Glucose 106 H Calcium 9.1 Cardiac Enzymes 06/02/21 Range/Units 04:52 Troponin I 0.048 H* (0-0.045) ng/ml Medications Administered Current Inpatient Medications Acetaminophen (Acetaminophen 325 Mg Tab) 650 mg PO Q4H PRN PRN Reason: Pain or Fever Stop: 07/01/21 21:31 Amiodarone HCl (Amiodarone 200 Mg Tab) 200 mg PO BIDM ROBERTO Stop: 07/02/21 07:59 Last Admin: 06/02/21 16:30 Dose: 200 mg Documented by: Aspirin (Aspirin 81 Mg Ectab) 81 mg PO DAILY ROBERTO Stop: 07/02/21 08:59 Last Admin: 06/02/21 08:35 Dose: 81 mg Documented by: Cyanocobalamin (Cyanocobalamin 500 Mcg Tablet (Vitamin B-12)) 1,000 mcg PO DAILY ROBERTO Stop: 07/02/21 08:59 Last Admin: 06/02/21 08:34 Dose: 1,000 mcg Documented by: Escitalopram Oxalate (Escitalopram Oxalate 10 Mg Tab) 5 mg PO DAILY ROBERTO Stop: 07/02/21 08:59 Last Admin: 06/02/21 08:35 Dose: 5 mg Documented by: Furosemide (Furosemide 20 Mg Tab) 20 mg PO DAILY ROBERTO Stop: 07/02/21 08:59 Last Admin: 06/02/21 08:35 Dose: 20 mg Documented by: Metoprolol Succinate (Metoprolol Succ 50mg Ext Rel Tab) 50 mg PO DAILY ROBERTO Stop: 07/02/21 08:59 Last Admin: 06/02/21 08:35 Dose: 50 mg Documented by: Olanzapine (Olanzapine 10 Mg/2.1 Ml Sdv) 2.5 mg IM Q4H PRN PRN Reason: anxiety/agitation Stop: 07/01/21 21:31 Pantoprazole Sodium (Pantoprazole 40 Mg Tab) 40 mg PO DAILY [facility] Stop: 07/02/21 08:59 Last Admin: 06/02/21 08:34 Dose: 40 mg Documented by: Potassium Chloride (Potassium Chloride 10 Meq Tabcr) 10 meq PO BID [facility] Stop: 07/01/21 21:31 Last Admin: 06/02/21 20:30 Dose: 10 meq Documented by: Rosuvastatin Calcium (Rosuvastatin Calcium 10 Mg Tab) 10 mg PO Q2D@0900 [facility] Stop: 07/03/21 08:59
[2021-06-02] MEDS ORDERED: MAGNESIUM SULFATE / D5W 1 GM/100 ML BAG IV ONE (21:48)
[2021-06-02] MEDS ORDERED: POTASSIUM CHLORIDE CRTAB 20 MEQ TABCR PO STA (21:48)
[2021-06-02] MEDS ORDERED: METOPROLOL TARTRATE 25 MG TAB PO STA (21:58)
--- NOTE | 2021-06-03 08:34 | Electrocardiogram Report ---
Test Reason : Blood Pressure : / mmHG Vent. Rate : 064 BPM Atrial Rate : 064 BPM P-R Int : 362 ms QRS Dur : 120 ms QT Int : 442 ms P-R-T Axes : 000 071 084 degrees QTc Int : 455 ms Atrial-paced rhythm with prolonged AV conduction Old Possible Inferior infarct Abnormal ECG When compared with ECG of 01-JUN-2021 15:08, No significant change Confirmed by Reji Gutiérrez ([id number]) on 06/03/2021 8:34:21 AM Referred By: REFERRED SELF Confirmed By:Reji Gutiérrez
[2021-06-03] MEDS ORDERED: ROSUVASTATIN CALCIUM 10 MG TAB PO SCH (09:00)
[2021-06-03] MEDS: AMIODARONE 200 MG TAB PO SCH (09:59)
[2021-06-03] MEDS: CYANOCOBALAMIN 500 MCG TABLET (VITAMIN B-12) PO SCH (10:00)
[2021-06-03] MEDS: ASPIRIN 81 MG ECTAB PO SCH (10:00)
[2021-06-03] MEDS: FUROSEMIDE 20 MG TAB PO SCH (10:01)
[2021-06-03] MEDS: METOPROLOL SUCC 50MG EXT REL TAB PO SCH (10:01)
[2021-06-03] MEDS: POTASSIUM CHLORIDE 10 MEQ TABCR PO SCH (10:02)
[2021-06-03] MEDS: PANTOprazole 40 MG TAB PO SCH (10:02)
--- NOTE | 2021-06-03 10:16 | Cardiology Progress Note ---
Date of Service June 03, 2021 Assessment & Plan (1) Ventricular tachycardia: (2) Defibrillator discharge: (3) Ischemic cardiomyopathy: (4) Chronic confusion: (5) Biventricular ICD (implantable cardioverter-defibrillator) in place: Plan: Patient is an 80-year-old male with known ischemic cardiomyopathy with implanted biventricular defibrillator in place. He has had 2 device discharges in the last 2 days which appear appropriate by initial evaluation. Patient's had difficulties with past defibrillator discharge. Device to be formally interrogated in a.m. Antiarrhythmic therapy has been initiated with amiodarone 200 mg twice per day with slow load given past history of iodine contrast allergy. Since admission appears to be tolerating will anticipate inpatient follow for at least an additional 24 hours Echocardiogram now with significant echodensity in the apex likely thrombus. Patient previously treated with Eliquis anticoagulation. Will need to discuss with the patient and his Coumadin versus returning to Eliquis. While Eliquis is off label for LV thrombus I suspect this may be a better tolerated regimen given his advancing dementia. Admission and Anticipated Discharge Date Admission Date: June 01, 2021 Subjective Patient seen and examined, chart reviewed. Currently states he feels depressed but physically without complaint. Denies chest pain, shortness of breath, palpitations, lightheadedness, dizziness or syncope. Nursing reports some confusion overnight. Patient's main concern at this time is trying to get a hold of his by phone. Telemetry reviewed: Ventricularly paced rhythm. Review of Systems Review of Systems: All systems reviewed & are unremarkable except as noted in HPI & below Physical Exam Physical Exam: General: Awake, alert and oriented x 3. No acute distress. HEENT: Normocephalic, atraumatic. Pupils equal, round and reactive to light and accommodation. Extraocular muscles are intact. Anicteric sclera. Moist mucous membranes. Neck: No JVD. No bruit. Cardiovascular: Regular. Positive S-4. Normal S-1 and S-2. No S-3. 3/6 mid to late systolic ejection murmur, greatest at the right sternal border, second intercostal space with radiation to the bilateral carotids. No rubs. Pulmonary: Clear to auscultation bilaterally. No rales, rhonchi, or wheezing. Abdomen: Bowel sounds x 4, soft. No rebound, guarding or tenderness. No organomegaly. Extremities: No clubbing, cyanosis or edema. +2 pedal pulses bilaterally. Skin: Warm and dry. Results & Data ([facility]) Vital Signs (Past 12 Hours) Vital Signs Temp Pulse Pulse Resp BP Pulse Ox 06/03/21 09:37 61 06/03/21 07:09 36.6 C 61 18 133/69 96 06/03/21 03:00 36.3 C L 62 18 116/62 94 06/02/21 23:07 36.3 C L 107 H 18 121/58 L 90
--- NOTE | 2021-06-03 16:06 | Discharge Summary ---
Date of Service June 03, 2021 Admission HPI Per Admitting Provider History obtained from patient, family, and records. Patient is a fair historian. Medical history significant for chronic systolic heart failure secondary to ischemic cardiomyopathy (EF 20-24%, TTE 2019), CAD status post CABG, PVD as per records, paroxysmal VT status post ICD, hypertension, hyperlipidemia, COPD as per records, hx PE sp Eliquis, mood disorder, episodic thrombocytopenia, possible dementia as per records, past tobacco abuse. Subsequent confinement at [facility] for pneumonia and pulmonary embolism status post completion of Eliquis Rx. Last confinement December 2020 for defibrillator discharge. ICD interrogation showed episodes of VT and VF. Beta-indy dose increased on discharge. Last night patient felt his defibrillator fired twice while mowing the grass riding mower. Transient chest pain. No dizziness or syncope. On-call automatic profile sander operator recommended ER evaluation which patient declined. Patient instructed to have device interrogated at [facility] pacemaker clinic on Thursday along with outpatient blood work. ICD shock recurrence when patient got back on the mower this afternoon. Patient brought to the ER for evaluation. 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, lives with Admission Exam Per Admitting Provider GENERAL: Slightly anxious, pleasant, oriented to year, no respiratory distress SKIN: Normal color, warm HEENT: Alopecia, pink palpebral conjunctivae, no ptosis, dry buccal mucosa NECK : Supple, no tenderness CHEST : Decreased breath sounds, no tenderness HEART : diminished S1-S2, no obvious murmurs ABDOMEN: Some distention, nontender EXTREMITIES : No LE swelling/tenderness, no other conspicuous deformities noted NEUROLOGIC : Coherent, oriented to year, no facial asymmetry, no other gross focality Principal Diagnosis Ventricular tachycardia: Discharge Exam General: awake and alert HENT: NCAT, MMM, EOMI Eyes: PERRLA Neck: Supple, normal range of motion CVS: normal rate and rhythm Resp: b/l good breath sounds Abdomen: Soft, ND/NT, +BS Extremities: No c/c/e Neuro: face symmetric, no focal deficit Skin: warm and dry, no rashes/lesions/errythema MSK: no joint swelling/erythema Discharge Data Allergies Allergy/AdvReac Type Severity Reaction Status Date / Time alprostadil [From [place]] Allergy Unknown Unknown - Unverified 06/01/21 16:55 [facility] niacin Allergy Unknown Unknown - Unverified 06/01/21 16:55 [facility]. pravastatin Allergy Unknown Unknown - Unverified 06/01/21 16:55 [facility]. simvastatin Allergy Unknown Unknown - Unverified 06/01/21 16:55 [facility]. Iodinated Contrast Media Allergy Anaphylaxis Verified 01/24/21 02:17 Consultations 06/01/21 17:59 ED Decision to Admit Stat 06/01/21 21:32 Consult Cardiology Routine Ordered Studies 06/01/21 15:31 CT head/brain wo con Stat Hospital Course (1) Ventricular tachycardia: Paroxysmal ventricular tachycardia status post ICD shock x2 verified by pacemaker interrogation. Cardiology was on board. Patient was started on amiodarone. Given his history of iodine contrast allergy, patient was started with a low load. On 06/03, his became very upset and decided to leave AGAINST MEDICAL ADVICE. She was upset at not being notified that his rhonchi are changed today, note getting daily updates about his clinical status and no one calling her today. I explained to the patient and the against leaving medical advice. She was persistent that they have other doctors who can look after him. Advised him to start taking amiodarone 200 mg twice daily and start Eliquis with 10 mg twice daily followed by [address] Mauricio Granados, was notified and he agreed with Eliquis and amiodarone plan. Was called to patient room because his wanted to be discharged however she needs to continue current therapy. This was explained to the patient and his extensively in detail. The patient and still wished to sign out [facility] medical advice. I explained the risks of signing out AMA and without finishing the planned upon treatment which included or severe bodily harm. The patient was informed that if the condition worsened she should proceed to the nearest emergency room. (2) Defibrillator discharge: Plan as above (3) Ischemic cardiomyopathy: Repeat echocardiogram. Patient has a history of past apical thrombus and recent discontinuation of anticoagulation. Continue guideline directed medical therapy with Toprol-XL 50 mg daily, Crestor 10 mg every 2 days. Continue aspirin 81 mg p.o. daily (4) Depression: Lexapro recently started and currently being held after increased conf usion noted per records. Total Time Total Time Spent Total Time Spent (In Minutes): 25 Discharge Plan Discharge Items Patient Disposition: Against Medical Advice Reason For Visit: PAROXYSMAL VT Activity: Resume your previous activity Non-emergency contact: Primary Care Provider Follow-up/Referrals: Kali Kiran MD [Primary Care Provider] - Pending Studies at Discharge: No Stand-Alone Forms: [facility] [place], Smoking Cessation Medications and DC Order Prescriptions: New amiodarone 200 mg Tablet 200 mg PO BIDM Qty: 60 RF: 0 Eliquis 5 mg tablet 5 mg PO BID Qty: 60 RF: 0 Continued glucosamine sulfate [Glucosamine] 500 mg Tablet 500 mg PO DAILY RF: 0 aspirin [Ecotrin Low Strength] 81 mg Tablet,Delayed Release (Dr/Ec) 81 mg PO DAILY RF: 0 coenzyme Q10 [Co Q-10] 100 mg Capsule 100 mg PO DAILY RF: 0 omeprazole magnesium [Prilosec OTC] 20 mg Tablet,Delayed Release (Dr/Ec) 20 mg PO DAILY RF: 0 cyanocobalamin (vitamin B-12) [Vitamin B-12] 500 mcg Lozenge 1,000 mcg PO DAILY RF: 0 cholecalciferol (vitamin D3) [Vitamin D3] 1,000 unit Tablet,Chewable 1,000 unit PO DAILY RF: 0 escitalopram oxalate [Lexapro] 5 mg tablet 5 mg PO DAILY Qty: 30 RF: 0 potassium chloride 10 mEq tablet extended release 10 meq PO BID RF: 0 furosemide [Lasix] 20 mg tablet 20 mg PO DAILY RF: 0 albuterol sulfate 90 mcg/actuation HFA aerosol inhaler 1 puff INHALATION QID PRN (Reason: Shortness Of Breath) RF: 0 clotrimazole 1 % Cream 1 applic TOPICAL BID RF: 0 rosuvastatin [Crestor] 10 mg tablet 10 mg PO Q2D RF: 0 sildenafil [Viagra] 100 mg tablet 100 mg PO UD RF: 0 testosterone [AndroGel] 1 % (25 mg/2.5gram) gel in packet 1 packet topical UD RF: 0 metoprolol succinate 50 mg tablet extended release 24 hr 50 mg PO DAILY RF: 0 Discharge Orders: Left Against Medical Advice (Routine); Ordered 06/03/21 Ordered By: Ana Luis Admission Data Admit Date/Time: 06/01/21 20:31 Attending Provider: Ana Luis Admit Provider: Sajan Woodall Primary Care Provider: Kali Kiran Other Providers: Sajan Woodall ; Mauricio Granados ; Nabil Boswell ; Jeronimo Villanueva ; Sotero Reeves ; Christophe Silva ; Mando Mcdermott ; Ting Meneses ; Mayte Lemon ; Ada Muir ; Favian Millard
== END 2021-06-03 16:15 | disposition left against medical advice (07) | DRG 309 ==
LOC: ED 14:52 → SUATTDRO 20:31 → 2E 20:31 → 2S 06-02 18:12